=== PATIENT | female | born 1965 | race Caucasian/White ===

== ENCOUNTER → 2017-12-27 07:20 | Outpatient (CLI) | payer OTHER, SELFPAY ==
[2017-12-27 08:57] LABS: Absolute Lymphocyte Count 1.05 X10^3/ul (0.83-4.51); Absolute Neutrophil Count 2.3 X10^3/uL (2.0-7.7); Basophil# 0.02 X10^3/uL; Basophil% 0.5 % (0-1); Hematocrit 39.6 % (37-47); Hemoglobin 12.9 g/dl (12.0-15.0); Lymphocyte # 1.05 X10^3/ul (4.0); Lymphocyte % 26.1 % (19-41); Mean Corp Hgb Conc 32.6 g/gl (32-36); Mean Corpuscular Hgb 28.1 pg (27.0-32.0); Mean Corpuscular Volume 86.3 fL (81-99); Mean Platelet Vol. 10.8 fl (6.2-12.0); Monocyte# 0.45 X10^3/uL; Monocyte% 11.2 % (0-10); Neutrophil # 2.29 X10^3/uL (2.7-7.7); Platelet Count 228 K/mm3 (150-450); RBC Distribution Width CV 13.6 % (11.6-14.6); Red Blood Count 4.59 M/mm3 (4.2-5.4)
[2017-12-27 08:59] LABS: POSITIVE COUNT NO; POSITIVE DIFFERENTIAL NO; POSITIVE MORPHOLOGY NO
[2017-12-27 09:31] LABS: Anion Gap 7 (5-15); BUN 15 mg/dL (7-18); BUN/Creat Ratio 24.2 RATIO (10-20); Calcium,Total 9.4 mg/dL (8.5-10.1); Chloride 105 mmol/L (98-107); Cholesterol 223 mg/dL (200); Creatinine, Serum 0.62 mg/dL (0.55-1.02); EST Glomerular Filtration Rate 107 mL/min (>60); Est Glom Filt Rate - Afr Amer 129 mL/min (>60); Glucose 85 mg/dL (74-106); High Density Lipoprotein 85 mg/dL; Potassium 4.1 mmol/L (3.5-5.1); Sodium Level 140 mmol/L (136-145); Triglycerides 70 mg/dL; Very Low Density Lipoprotein 14 mg/dL (5-40)
[2017-12-27 09:34] LABS: Vitamin D,25 Hydroxy 25.1 ng/mL (19.95-100.01)
== END ==
PROVIDERS: Family Provider Internal Medicine; PCP Internal Medicine; Visit Provider Internal Medicine
DX: Z00.00 Encounter for general adult medical examination without abnormal findings (principal); R07.9 Chest pain, unspecified
CPT/HCPCS: 36415; 80048; 80061; 82306; 84484; 85025

== ENCOUNTER → 2019-08-27 08:31 | Outpatient (CLI) | payer OTHER, SELFPAY ==
[2019-08-27 08:18] VITALS: BMI 20.8
--- NOTE | 2019-08-27 08:34 | RAD_ITS ---
STUDY: X-RAY - LEFT KNEE REASON FOR EXAM: Medial knee pain status post injury 2 weeks ago, tingling extending down leg. TECHNIQUE: 4 view(s) of the knee. COMPARISON: None. FINDINGS: Normal visualized distal femur. Normal visualized proximal tibia and fibula. Normal proximal tibiofibular articulation. Normal medial femorotibial compartment. Normal lateral femorotibial compartment. Normal patellofemoral articulation. There is a small joint effusion. RAD/Knee 4 or More Views IMPRESSION: Small joint effusion. Electronically Signed: Martell Espinal MD at 12:44 EDT Tel , Service support ,
== END ==
PROVIDERS: Family Provider Internal Medicine; PCP Internal Medicine; Referring Provider Orthopaedic Surgery; Visit Provider Orthopaedic Surgery
DX: S89.92XA Unspecified injury of left lower leg, initial encounter (principal); X58.XXXA Exposure to other specified factors, initial encounter
CPT/HCPCS: 73564

== ENCOUNTER → 2019-08-27 10:36 | Outpatient (CLI) | payer OTHER, SELFPAY ==
[2019-08-27 08:18] VITALS: BMI 20.8
--- NOTE | 2019-08-27 10:40 | MRI_ITS ---
STUDY: MRI LEFT KNEE REASON FOR EXAM: Left medial knee pain, injury 2 weeks ago. TECHNIQUE: Standardized fat and water weighted pulse sequences were obtained in all 3 orthogonal planes. COMPARISON: Radiographs 08/27/2019. FINDINGS: There is a predominantly horizontal tear of the inferior articular surface of the posterior horn of the medial meniscus (proton density sagittal images 10-13). Normal hyaline cartilage of the medial femorotibial compartment. There is mild subchondral bone edema of the posterior aspect of the medial tibial plateau (T2 coronal images 11, 12), likely a stress phenomenon. There is a sprain of the superficial fibers of the medial collateral ligament (T2 coronal image 16). Normal distal semimembranosus, gracilis and semitendinosus tendons. Normal lateral meniscus. Normal hyaline cartilage of the lateral femorotibial compartment. Normal lateral femoral condyle and tibial plateau. Normal proximal tibiofibular articulation. Normal lateral collateral (fibular) ligament. Normal popliteus tendon. Normal biceps femoris tendon. Normal anterior cruciate ligament (ACL). Normal posterior cruciate ligament (PCL). Normal congruent patellofemoral articulation. Normal hyaline cartilage of the patellofemoral compartment. Normal medial and lateral patellar retinaculum. Normal quadriceps tendon. Normal patellar tendon. Normal Hoffa's fat pad. There is a small joint effusion. There is a short thin medial patellar plica. There is a small popliteal cyst with extravasation of fluid (T2 sagittal images 8, 9). The otherwise visualized osseous structures are unremarkable. MRI/Lower Ext Joint Only (Routine) IMPRESSION: Medial meniscal tear. Medial collateral ligament sprain. Mild subchondral bone edema of the medial tibial plateau, a stress phenomenon. Small joint effusion. Small popliteal cyst with extravasation of fluid. Electronically Signed: Martell Espinal MD at 12:40 EDT Tel , Service support ,
== END ==
PROVIDERS: Family Provider Internal Medicine; PCP Internal Medicine; Referring Provider Orthopaedic Surgery; Visit Provider Orthopaedic Surgery
DX: S83.242A Other tear of medial meniscus, current injury, left knee, initial encounter (principal); X58.XXXA Exposure to other specified factors, initial encounter
CPT/HCPCS: 73721

== ENCOUNTER → 2019-09-03 16:27 | Outpatient (CLI) | payer OTHER, SELFPAY ==
[2019-09-03 13:28] VITALS: BMI 19.3
[2019-09-03 16:32] LABS: Pathologist Comment May follow
[2019-09-03 20:40] LABS: AUTO B FLUID DILUENT BKGD CT WBC <0.1 RBC <0.01 (W<.1,R<.01); Source- Body Fluid SYNOVIAL
[2019-09-03 20:42] LABS: Appearance /Synovial Fluid Sl hazy (CLEAR); Color / Synovial Fluid Yellow (Pale Yellow); Source / Synovial Fluid L KNEE
[2019-09-03 20:43] LABS: Synovial Fld Polynuclear WBC # 0.011 10^3/uL
[2019-09-03 20:44] LABS: Synovial Fld Mononuclear WBC # 0.147 10^3/ul
[2019-09-03 21:08] LABS: RBC /Synovial Fluid 11 /mm3 (0)
[2019-09-03 21:26] LABS: Lymph 20 %; Monocyte /Synovial Fluid 80 %; Neutrophil 0 % (0-25)
[2019-09-03 21:27] LABS: Body Fluid QC Type(s) BF3Q,BF4Q
[2019-09-04 11:46] LABS: Pathologist Review Reviewed
[2019-09-07 10:29] LABS: GLUCOSE, SYNOVIAL FLUID 84 mg/dL (.); PROTEIN, SYNOVIAL FLUID 4.4 g/dL (.)
== END ==
PROVIDERS: Family Provider Internal Medicine; PCP Internal Medicine; Referring Provider Orthopaedic Surgery; Visit Provider Orthopaedic Surgery
DX: M25.462 Effusion, left knee (principal)
CPT/HCPCS: 82945; 84157; 87070; 87075; 87205; 89050; 89051; 89060

== ENCOUNTER → 2019-11-06 12:06 | Outpatient (CLI) | payer OTHER, SELFPAY ==
[2019-09-08 12:52] VITALS: BMI 19.3
--- NOTE | 2019-11-06 12:07 | BI_ITS ---
MAMMOGRAPHY - BILATERAL SCREENING REASON FOR EXAM: Female, 53 years old. Routine annual screening examination. PERTINENT HISTORY: Non-contributory. TECHNIQUE: Digital bilateral breast kyler (3D mammographic acquisition) in the CC and MLO projections. 2-D mediolateral oblique (MLO) and craniocaudad (CC) views of both breasts were obtained. CAD: Full Field Digital Mammography with Computer Added Detection was performed. COMPARISON: Comparison is made with prior outside examination dated May 02, 2015. FINDINGS: Breast Composition: The breasts are heterogeneously dense, which may obscure small masses. There are no dominant masses or suspicious calcifications. No other significant abnormalities are identified. There has been no significant change since the prior study. BI/SCREEN MAMM (CAD) W/KYLER BILAT IMPRESSION: Stable bilateral screening mammogram. Yearly follow-up mammogram recommended. (A) ASSESSMENT CATEGORY: BIRADS Category 1: Negative. A letter regarding these results will be sent to the patient by the facility within 30 days. Approximately 10% of breast cancers are not detected by mammography. A normal mammogram should not delay biopsy of a clinically suspicious abnormality. [id number] Electronically Signed: Noe Colin, at 9:06 EST , Service support ,
== END ==
PROVIDERS: Family Provider Internal Medicine; PCP Internal Medicine; Referring Provider Internal Medicine; Visit Provider Internal Medicine
DX: Z12.31 Encounter for screening mammogram for malignant neoplasm of breast (principal)
CPT/HCPCS: 77063; 77067

== ENCOUNTER 2019-12-02 07:46 | Day surgery (SDC) | payer OTHER, SELFPAY ==
[2019-11-24 15:17] VITALS: BMI 19.3
[2019-12-02] VITALS (12 sets, daily range): BP systolic 71–100; BP diastolic 46–66; PULSE 57–76; RESP 16; TEMP 36.2–37.1; O2SAT 92–100
--- NOTE | 2019-12-02 07:14 | HP.PCM_ITS ---
History and Physical I have re-examined the patient. There are no clinical changes since date of exam. Intake Vital Signs 11/24/19 BMI 19.3 Intake Visit Reasons: LEFT KNEE Chief Complaint: f/u visit Allergies No Known Allergies Allergy (Verified 09/08/19 12:39) Medications escitalopram oxalate 10 mg tablet mg PO 11/24/19 [History Confirmed 11/24/19] PFSH Social History (Updated 09/08/19 @ 14:00 by Wendy Oliva DO) Smoking Status: Light Smoker (<10/day) alcohol intake: current alcohol intake frequency: a few times a month Alcohol type: wine substance use type: does not use what type of physical activity do you participate in: walking frequency: 3-4 times per week HPI LEFT KNEE: Surgical H&P: Yes Details: Parts of this documentation were recorded by a scribe, this documentation accurately reflects the service provided and the decisions made by , Wendy Oliva DO 11/24/19 [id number]. JOSEFINA GARCIA is a 53 year old F here today for F/U on left knee pain. Patient had x-rays on 08/27/19 and she had an MRI on 08/27/19 and she had a meniscus tear. Patient opted for a steroid injection and this resolved her pain for about 2 months. She noted her pain returning about 11/03/19 and she thought it was ju st because of the holiday and she states that her pain has continued to worsen since then. Denies numbness, tingling or other associated symptoms. Patient is have anterior medial and lateral knee pain. Does have painful popping. She feels a lot instability of her knee with ambulation. Ortho Exam Left Knee Skin/Wound: Yes CDI, Yes swelling Contralateral Normal: Yes Homans Sign: No 1+: Effusion Knee ROM: Yes ROM-Extension -20 to 0, No ROM-Flexion 0-140 Examination: Yes med jt line tenderness, Yes Pain with flexion, Yes Eunice's T est No rales rhonchi wheezing, no abdominal pain, no audible bruits Assessment & Plan Problems 1. Acute medial meniscus tear of left knee, subsequent encounter S83.242D Plan - Wendy Oliva DO Reviewed the post op restrictions and limitations based on the meniscus vs meniscectomy. Reviewed the pre-operative plans with the patient. Risks and benefits of the procedure were fully explained, including but not limited to infection, neurovascular injury, continued pain, arthritis, stiffness, need for further pancho kendal, re-injury, DVT, PE, general risks of anesthesia, and loss of limb or life. The patient understands all the risks and does wish to proceed with written consent. Follow up post op or sooner if pain, swelling, numbness or associated symptoms, or concerns develop. All questions answered. Patient in agreement of plan. Coding Diagnoses Acute medial meniscus tear of left knee, subsequent encounter S83.242D ??Encounter type: subsequent encounter
[2019-12-02] MEDS: Lactated Ringers 1,000 ML 100 ML IV ×3 (08:20→11:14)
--- NOTE | 2019-12-02 09:05 | DCINST_ITS ---
Discharge Diet: No Restrictions - Do not get incision wet for 4 days, remove dressings in 4 days apply Band-Aids to incision sites, call with increased pain numbness tingling or further issues arise, ankle pumps, ice, elevate toes above nose, follow-up,ttwb left leg for 6 weeks Discharge Activity: May Not Drive May shower in (days): 1 Ice area for (Minutes): 20 - Every hour while awake. Weight Bearing Status: Weight bearing as tolerated Keep extremity elevated above heart level: Operative Extremity Call your doctor if your incision/area has: Continuous Slow Oozing, Sudden Increased Bleeding, Increased Pain/ Swelling, Increased Redness, Foul Smelling Discharge Call your doctor if you observe: Fever of 101 or Higher, Coldness, Increased Pain, Numbness or Tingling, Change in Color, Calf discomfort Allergies/Adverse Reactions: Allergies No Known Allergies Allergy (Verified 12/02/19 07:50) Medications to take at Discharge escitalopram oxalate 10 mg tablet 10 mg PO DAILY 11/24/19 Hydrocodone Bitart/Apap 5-325 [[place] 5MG-325MG] 1 - 2 tab PO Q6H PRN PRN 5 Days #40 tab 12/02/19 The following prescriptions were given: Hydrocodone Bitart/Apap 5-325 [[place] 5MG-325MG] 1 - 2 tab PO Q6H PRN PRN 5 Days #40 tab PRN Reason: Pain Transmission Status: Received by [facility] Primary Care Physician: Larry Hunt MD [Primary Care Provider] - Test Results: Test results from this visit will be discussed in further detail at your follow- up appointment, if applicable. Please Follow Up With: Wendy Oliva, DO - [phone]
--- NOTE | 2019-12-02 09:05 | OP.PCM_ITS ---
Report of Operation Date of Procedure: 12/02/19 Pre-Operative Diagnosis: left knee medial meniscus tear Post-Operative Diagnosis: [place] Surgery/Procedure Performed:: Left knee arthroscopy: Medial meniscectomy, medial meniscus repair, extensive synovectomy Type of Anesthesia:: General Anesthesiologist: Kiko Patel Specimen's removed: tt- Estimated Blood Loss (mL): min Fluids Replaced: 800cc lr Description of Procedure: Preop note Patient is a patient well-known to me in clinic. Patient sustained a twisting injury to her left knee continued pain and instability on the medial side. MRI confirms undersurface medial meniscus tear. Patient elected proceed with left knee arthroscopy. Indicated. Risk benefits and alternatives were discussed with patient. Risk include but not limited to blood loss, blood clot, infection, neurovascular, failure procedure, loss of life and loss of limb. Patient is aware would like proceed with left knee arthroscopy repair as indicated Operative note Patient seen and examined preop holding her. Left leg was marked. Patient brought to the operating placed supine on the operating table. Signed, anesthesia, antibiotics were administered. Left leg was prepped and draped usual sterile fashion. SCDs placed on her contralateral limb and all bony prominences well-padded. The left leg was marked out for 4 portal placement. The left leg was then elevated exsanguinated and tourniquet was raised her pressure of 250 torr. We get our diagnostic diagnostic arthroscopy after we create our anterolateral portal. Visualize the medial joint line with some difficulty showed extensive synovitis throughout. We create a anteromedial portal under direct with direct visualization. Resected the synovitis that was anteromedial anterolateral. Patellofemoral joint was intact. The medial meniscus anterior horn was intact however the posterior horn was intact the mid body to posterior horn there was an undersurface unstable frayed degenerative meniscus tear. This was resected with a shaver. There was little bit of instability at the leading edges of the tear on either side so we did placed to reverse curved FasT-Fix 360 devices for to prevent further propagation of the tear. ACL PCL were present within the notch. We then performed extensive synovitis lateral anterior lateral she still had difficulty getting to the lateral aspect of her joint line. We are able to visualize the meniscus which was intact and stable probing. The lateral femoral condyle the medial tibial plateau the medial femoral condyle and medial tibial plateau were all intact stable probing. She had limited fraying of the lateral tibial plateau and some fissuring with this was left alone. We then irrigated the knee with copious muscle sterile saline. Tourniquet deflated for total working time of 34 minutes. Sterile dressings were applied and a hinged knee brace to the left knee was applied. Patient taught procedure well no complication transferred recovery room stable condition Postoperative note Toe-touch weightbearing left leg Our pharmacy has prescriptions Call with increased pain numbness tingling further issues arise Discussed with we will give pictures at next postop visit This note was generated with [employer] dictation software. It may contain incorrect words, spelling, and punctuation that were not noted in checking the note before signing.
[2019-12-02] MEDS: Cefazolin 2 GM in 0.9% Normal Saline 100 ML IV (09:06)
[2019-12-02] MEDS: Epinephrine (1 mg/ml) 1 MG/ML VIAL (09:29)
[2019-12-02] MEDS: Mupirocin Ointment 22gm Tube 1 APPLIC (09:40)
[2019-12-02] MEDS: Bupiv/Epi 0.25% 30 ML Vial (10:06)
[2019-12-02] MEDS: HYDROcodone Bitartrate/Apap 5/325 Tablet PO (12:09)
== END 2019-12-02 12:47 | disposition home or self-care (01) ==
LOC: SDC 07:48 → AC 07:49
PROVIDERS: Family Provider Internal Medicine; PCP Internal Medicine; Referring Provider Orthopaedic Surgery; Visit Provider Orthopaedic Surgery
PROC: (CPT 29882; principal; 2019-12-02 09:10)
DX: S83.242D Other tear of medial meniscus, current injury, left knee, subsequent encounter (principal); Z87.891 Personal history of nicotine dependence
CPT/HCPCS: 29876; 29881; J7120; J2405

== ENCOUNTER 2020-02-05 08:00 | Outpatient (RCR) | payer OTHER, SELFPAY ==
--- NOTE | 2020-01-22 11:06 | HP.PTEVAL_ITS ---
Patient's Visit Information JOSEFINA GARCIA is a 54 year old F referred to Physical Therapy by Dr. Wendy Oliva DO with a diagnosis of L knee menisectomy. Date of Evaluation: 01/22/20 Physical Therapist: Adam Cesar, PT, ATC - Visit Plan Frequency: 1x/Week Duration: 4-6 Weeks Plan: L knee stretching ad strengthening, core strengthening, balance and proprio, bike, and HEP - Subjective Subjective: DOS: 12/02/2019. Pt reports she had a L meniscus repair. 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 Pt reports there was immediate pain and swelling. Pt reports she had a cortisone injection which helped for a few weeks, but the pain returned and he had to have surgery. Pt reports she was NWB'ing for 6 weeks and has been able to ambulate for 1 week now. Pt reports no pain with walking now. Pt reports she is really feeling better now. Pt reports she also has pain with descending stairs . Pt reports she continues to get mobility and flexibility back every day. 1/10 pain at rest, 3 /10 pain at worst - Pain L knee pain Pain Intensity (Out of 10): 1 Pain Intensity Range: 3 - Objective Neuro: B LE sensation is WNL to light touch. B achilles reflex= 2/3. ROM: R knee 0-4-145; L knee 0-10-110. MMT: L LE 4+/5 while R LE 5/5 throughout. Girth at joint line: B knees 34 cm - Goals Goal 1:: Decrease L knee pain x 50% to aid with IADL's Goal Time Frame: 4-6 Weeks Goal 2:: Increase L knee strength x 1 grade to aid with stair negotiation Goal Time Frame: 4-6 Weeks Goal 3:: Increase L knee ROM x 30 degrees to aid with sitting tolerance Goal Time Frame: 4-6 Weeks Goal 4:: I with HEP Goal Time Frame: 4-6 Weeks - Rehabilitation Potential Physical Therapy Diagnosis: L knee pain, weakness, and limited ROM secondary to L knee menisectoly Rehabilitation Potential: Good - Anticipated Interventions Patient/Client Instruction: Educate patient on: Condition, Plan of Care For the Purpose of:: To improve tolerance to ADL's Therapeutic Exercise to Include: Strength training, Endurance training, Flexibilty training, Gait and locomotor training, Active ROM, Dynamic Lumbar Stabilization For the Purpose of:: To decrease pain, To increase ROM, To improve muscle performance and motor function Cryotherapy (ice pack, ice massage): Yes For the Purpose of:: To decrease pain Thank you for the opportunity to evaluate your patient. For Medicare and Medicare HMO plans, please review the plan of care and approve it. It will need to be FAXED BACK to us at [phone] for Medicare purposes. For Medicare only, by signing this I certify the plan of care. Please let me know if there are questions or concerns regarding this plan of care. Physician Signature: Date:
--- NOTE | 2020-05-16 14:48 | HP.PT.NRP ---
JOSEFINA GARCIA was seen in my office for initial evaluation on 01/22/20. The following Plan of Care was established for this patient: Initial Frequency: 1x/Week Initial Duration: 4-6 Weeks Patient/Client Instruction: Educate patient on: Condition, Plan of Care For the Purpose of:: To improve tolerance to ADL's Therapeutic Exercise to Include: Strength training, Endurance training, Flexibilty training, Gait and locomotor training, Active ROM, Dynamic Lumbar Stabilization For the Purpose of:: To decrease pain, To increase ROM, To improve muscle performance and motor function Cryotherapy (ice pack, ice massage): Yes For the Purpose of:: To decrease pain This patient was last seen in our office . Pertinent comments regarding their Physical therapy will appear below: Pt was treated for 3 PT visits for L knee pain through the date of 02/05/2020. Pt is I with HEP and will cont with them at this time. Discontinue. At this point I will be discontinuing this patient from physical therapy. I would be happy to see this patient again in the future if found appropriate by the physician. Thank you! Adam Cesar, PT, ATC
== END 2020-02-05 19:00 | disposition home or self-care (01) ==
LOC: PT 08:00
PROVIDERS: PCP Internal Medicine; Referring Provider Orthopaedic Surgery; Visit Provider Orthopaedic Surgery
DX: Z98.890 Other specified postprocedural states (principal)
CPT/HCPCS: 97110; 97161

== ENCOUNTER 2020-07-27 16:39 | Outpatient (RCR) | payer OTHER, SELFPAY | END 2020-08-10 23:59 | LOC: EMPH 16:39 | PROVIDERS: PCP Internal Medicine; Visit Provider Family Medicine Geriatric Medicine | DX: Z11.59 Encounter for screening for other viral diseases (principal) | CPT/HCPCS: 87635; U0003 ==

== ENCOUNTER 2020-09-08 15:57 | Outpatient (RCR) | payer OTHER, SELFPAY | END 2020-09-10 23:59 | LOC: EMPH 15:57 | PROVIDERS: PCP Internal Medicine; Visit Provider Family Medicine Geriatric Medicine | DX: Z03.818 Encounter for observation for suspected exposure to other biological agents ruled out (principal) | CPT/HCPCS: 87426 ==

== ENCOUNTER 2020-10-05 07:58 | Outpatient (RCR) | payer OTHER, SELFPAY | END 2020-10-10 23:59 | LOC: EMPH 07:58 | PROVIDERS: PCP Internal Medicine; Visit Provider Family Medicine Geriatric Medicine | DX: Z03.818 Encounter for observation for suspected exposure to other biological agents ruled out (principal) | CPT/HCPCS: 87426 ==

== ENCOUNTER 2020-11-09 14:43 | Outpatient (RCR) | payer OTHER, SELFPAY | END 2020-11-10 23:59 | LOC: EMPH 14:43 | PROVIDERS: PCP Internal Medicine; Referring Provider Family Medicine Geriatric Medicine; Visit Provider Family Medicine Geriatric Medicine | DX: Z03.818 Encounter for observation for suspected exposure to other biological agents ruled out (principal) | CPT/HCPCS: 87426 ==

== ENCOUNTER 2020-12-09 08:13 | Outpatient (RCR) | payer OTHER, SELFPAY | END 2020-12-11 23:59 | LOC: EMPH 08:13 | PROVIDERS: PCP Internal Medicine; Referring Provider Family Medicine Geriatric Medicine; Visit Provider Family Medicine Geriatric Medicine | DX: Z03.818 Encounter for observation for suspected exposure to other biological agents ruled out (principal) | CPT/HCPCS: 87426 ==

== ENCOUNTER 2021-01-06 14:52 | Outpatient (RCR) | payer OTHER, SELFPAY | END 2021-01-08 23:59 | LOC: EMPH 14:52 | PROVIDERS: PCP Internal Medicine; Referring Provider Family Medicine Geriatric Medicine; Visit Provider Family Medicine Geriatric Medicine | DX: Z03.818 Encounter for observation for suspected exposure to other biological agents ruled out (principal) | CPT/HCPCS: 87426 ==

== ENCOUNTER 2021-02-02 08:08 | Outpatient (RCR) | payer OTHER, SELFPAY | END 2021-02-08 23:59 | LOC: EMPH 08:08 | PROVIDERS: PCP Internal Medicine; Referring Provider Family Medicine Geriatric Medicine; Visit Provider Family Medicine Geriatric Medicine | DX: Z03.818 Encounter for observation for suspected exposure to other biological agents ruled out (principal) | CPT/HCPCS: 87426 ==

== ENCOUNTER 2021-02-24 12:51 | Outpatient (RCR) | payer OTHER, SELFPAY | END 2021-03-10 23:59 | LOC: EMPH 12:51 | PROVIDERS: PCP Internal Medicine; Referring Provider Family Medicine Geriatric Medicine; Visit Provider Family Medicine Geriatric Medicine | DX: Z03.818 Encounter for observation for suspected exposure to other biological agents ruled out (principal) | CPT/HCPCS: 87426 ==

== ENCOUNTER 2021-05-09 13:25 | Outpatient (RCR) | payer OTHER, SELFPAY | END 2021-05-10 23:59 | LOC: EMPH 13:25 | PROVIDERS: PCP Internal Medicine; Referring Provider Family Medicine Geriatric Medicine; Visit Provider Family Medicine Geriatric Medicine | DX: Z03.818 Encounter for observation for suspected exposure to other biological agents ruled out (principal) | CPT/HCPCS: 87426 ==

== ENCOUNTER 2021-07-11 09:07 | Outpatient (RCR) | payer OTHER, SELFPAY | END 2021-07-11 23:59 | LOC: EMPH 09:07 | PROVIDERS: PCP Internal Medicine; Referring Provider Family Medicine Geriatric Medicine; Visit Provider Family Medicine Geriatric Medicine | DX: Z03.818 Encounter for observation for suspected exposure to other biological agents ruled out (principal) | CPT/HCPCS: 87426 ==

== ENCOUNTER 2021-07-24 09:34 | Outpatient (RCR) | payer OTHER, SELFPAY | END 2021-08-10 23:59 | LOC: EMPH 09:34 | PROVIDERS: PCP Internal Medicine; Referring Provider Family Medicine Geriatric Medicine; Visit Provider Family Medicine Geriatric Medicine | DX: Z03.818 Encounter for observation for suspected exposure to other biological agents ruled out (principal) | CPT/HCPCS: 87426 ==

== ENCOUNTER 2021-09-12 09:15 | Outpatient (RCR) | payer OTHER, SELFPAY | END 2021-10-10 23:59 | LOC: EMPH 09:15 | PROVIDERS: PCP Internal Medicine; Referring Provider Family Medicine Geriatric Medicine; Visit Provider Family Medicine Geriatric Medicine | DX: Z03.818 Encounter for observation for suspected exposure to other biological agents ruled out (principal) | CPT/HCPCS: 87426 ==

== ENCOUNTER 2021-11-08 11:00 | Outpatient (RCR) | payer OTHER, SELFPAY | END 2021-11-10 23:59 | LOC: EMPH 11:00 | PROVIDERS: PCP Internal Medicine; Referring Provider Family Medicine Geriatric Medicine; Visit Provider Family Medicine Geriatric Medicine | DX: Z03.818 Encounter for observation for suspected exposure to other biological agents ruled out (principal) | CPT/HCPCS: 87426; 87635; U0003 ==

== ENCOUNTER 2021-12-11 08:13 | Outpatient (RCR) | payer OTHER, SELFPAY | END 2021-12-11 23:59 | LOC: EMPH 08:13 | PROVIDERS: PCP Internal Medicine; Referring Provider Family Medicine Geriatric Medicine; Visit Provider Family Medicine Geriatric Medicine | DX: Z03.818 Encounter for observation for suspected exposure to other biological agents ruled out (principal) | CPT/HCPCS: 87426 ==

== ENCOUNTER 2021-12-25 15:28 | Outpatient (RCR) | payer OTHER, SELFPAY | END 2022-01-08 23:59 | LOC: EMPH 15:28 | PROVIDERS: PCP Internal Medicine; Referring Provider Family Medicine Geriatric Medicine; Visit Provider Family Medicine Geriatric Medicine | DX: Z03.818 Encounter for observation for suspected exposure to other biological agents ruled out (principal) | CPT/HCPCS: 87426 ==

== ENCOUNTER → 2022-11-30 | Outpatient (CLI) | payer OTHER, SELFPAY ==
[2022-11-30 12:29] LABS: Absolute Lymphocyte Count 1.31 X10^3/uL (0.83-4.51); Basophil# 0.04 X10^3/uL; Basophil% 0.7 % (0-1); Eosinophil# 0.15 X10^3/uL; Eosinophils% 2.5 % (0-5); Lymphocyte # 1.31 X10^3/ul (0.83-4.51); Lymphocyte % 21.7 % (19-41); Mean Corp Hgb Conc 31.7 g/dL (32-36); Mean Corpuscular Hgb 26.9 pg (27.0-32.0); Mean Corpuscular Volume 84.7 fL (81-99); Mean Platelet Vol. 10.7 fl (6.2-12.0); Monocyte# 0.53 X10^3/uL; Monocyte% 8.8 % (0-10); NRBC Flagged by Analyzer 0 % (0-5); Neutrophil # 3.98 X10^3/uL (2.7-7.7); Platelet Count 259 K/mm3 (150-450); RBC Distribution Width CV 13.7 % (11.6-14.6); RBC Distribution Width SD 42.9 fl (35.1-43.9); Red Blood Count 4.84 M/mm3 (4.2-5.4)
[2022-11-30 12:46] LABS: AST(SGOT) 16 U/L (15-37); Alanine Aminotransfer ALT/SGPT 23 U/L (13-56); Albumin, Serum 3.8 g/dL (3.2-5.0); Alkaline Phosphatase 76 U/L (45-117); Anion Gap 4 (5-15); BUN 20 mg/dL (7-18); BUN/Creat Ratio 33.2 RATIO (10-20); Calcium,Total 9.5 mg/dL (8.5-10.1); Chloride 105 mmol/L (98-107); Cholesterol 282 mg/dL (200); EST Glomerular Filtration Rate 108 mL/min (>60); Est Glom Filt Rate - Afr Amer 131 mL/min (>60); Globulin 3.7 g/dL (2.2-4.2); Glucose 95 mg/dL (74-106); High Density Lipoprotein 73 mg/dL; Potassium 4.2 mmol/L (3.5-5.1); Protein, Total 7.5 g/dL (6.4-8.2); Sodium Level 138 mmol/L (136-145); Triglycerides 137 mg/dL; Very Low Density Lipoprotein 27 mg/dL (5-40)
== END | disposition home or self-care (01) ==
LOC: BIMLAB 09:40
PROVIDERS: PCP Internal Medicine; Referring Provider Internal Medicine; Visit Provider Internal Medicine
DX: Z00.00 Encounter for general adult medical examination without abnormal findings (principal)
CPT/HCPCS: 36415; 80053; 80061; 85025

== ENCOUNTER → 2023-02-15 | Outpatient (CLI) | payer OTHER, SELFPAY ==
--- NOTE | 2023-02-15 13:19 | BI_ITS ---
MAMMOGRAPHY - BILATERAL SCREENING REASON FOR EXAM: Female, 57 years old. Routine annual screening examination. PERTINENT HISTORY: Non-contributory. TECHNIQUE: Digital bilateral breast kyler (3D mammographic acquisition) in the CC and MLO projections. 2-D mediolateral oblique (MLO) and craniocaudad (CC) views of both breasts were obtained. CAD: Full Field Digital Mammography with Computer Added Detection was performed. COMPARISON: Comparison is made with prior study of November 06, 2019. FINDINGS: Breast Composition: The breasts are heterogeneously dense, which may obscure small masses. There are no dominant masses or suspicious calcifications. No other significant abnormalities are identified. There has been no significant change since the prior study. BI/SCRN MAMM (CAD)W/KYLER BILAT IMPRESSION: Stable bilateral screening mammogram. Yearly follow-up mammogram recommended. (A) ASSESSMENT CATEGORY: BIRADS Category 1: Negative. A letter regarding these results will be sent to the patient by the facility within 30 days. Approximately 10% of breast cancers are not detected by mammography. A normal mammogram should not delay biopsy of a clinically suspicious abnormality. [id number] Electronically Signed: Noe Colin MD at 14:15 EDT ,
== END | disposition home or self-care (01) ==
PROVIDERS: PCP Internal Medicine; Referring Provider Internal Medicine; Visit Provider Internal Medicine
DX: Z12.31 Encounter for screening mammogram for malignant neoplasm of breast (principal)
CPT/HCPCS: 77063; 77067

== ENCOUNTER → 2023-11-15 | Outpatient (CLI) | payer OTHER, SELFPAY ==
--- NOTE | 2023-11-15 11:05 | ECHOD_ITS ---
Reason For Study: Palps Procedure This was a 2D Doppler, Color Flow transthoracic echocardiogram. Exam performed in department. Left Ventricle Normal LV size. Tiny membranous VSD likely. Left ventricular systolic function is normal. The estimated ejection fraction is 60 %. Normal diastology for age. No regional wall motion abnormalities noted. Right Ventricle Normal RV size. Normal systolic function. Atria Normal left atrium. Normal right atrium. Mitral Valve Normal mitral valve. Mild (1+) eccentric mitral valve insufficiency. Tricuspid Valve Normal tricuspid valve. Trivial tricuspid valve insufficiency. Pulmonary artery systolic pressure is 17 mmHg. Aortic Valve Normal aortic valve. Trisinus/trileaflet aortic valve. Pulmonic Valve Normal pulmonic valve. Great Vessels Normal aortic root. The pulmonary artery is normal size. Normal inferior vena cava. Pericardium/Pleural No pericardial effusion. MMode/2D Measurements & Calculations LVIDd: 4.4 cm IVSd: 0.76 cm Ao root diam: 2.8 cm LVIDs: 3.0 cm LVPWd: 0.78 cm RVDd: 2.8 cm FS: 32.8 % LAV(MOD-bp): 38.8 ml LVAd ap4: 27.6 cm2 LVAd ap2: 24.2 cm2 LAV(MOD-bp) Indexed: 22.7 ml/m2 LVLd ap4: 8.3 cm LVLd ap2: 7.5 cm LAV(MOD-sp2): 38.6 ml EDV(MOD-sp4): 77.4 ml EDV(MOD-sp2): 65.7 ml LAV(MOD-sp4): 34.9 ml EDV(sp4-el): 78.2 ml EDV(sp2-el): 66.4 ml LVAs ap4: 16.7 cm2 LVAs ap2: 15.2 cm2 LVLs ap4: 7.3 cm LVLs ap2: 6.8 cm ESV(MOD-sp4): 33.0 ml ESV(MOD-sp2): 28.3 ml ESV(sp4-el): 32.5 ml ESV(sp2-el): 28.9 ml EF(MOD-sp4): 57.3 % EF(MOD-sp2): 56.9 % EF(sp4-el): 58.5 % SV(MOD-sp4): 44.4 ml SV(MOD-sp2): 37.4 ml SV(sp4-el): 45.7 ml LA dimension(2D): 3.3 cm LA A4 area: 14.7 cm2 RA A4 area: 11.8 cm2 TAPSE: 1.8 cm Time Measurements MV dec time: 0.16 sec Doppler Measurements & Calculations MV E max trent: 71.6 cm/sec Lat Peak E' Trent: 10.7 cm/sec Med Peak E' Trent: 9.1 cm/sec MV A max trent: 71.6 cm/sec E/E' lat: 6.7 E/E' med: 7.9 MV E/A: 1.0 MV dec slope: 445.6 cm/sec2 Ao V2 max: 134.3 cm/sec LV V1 max: 116.7 cm/sec Ao max P.2 mmHg LV V1 max P.5 mmHg Ao V2 mean: 96.1 cm/sec LV V1 mean P.8 mmHg Ao mean P.2 mmHg LV V1 mean: 77.3 cm/sec Ao V2 VTI: 33.7 cm LV V1 VTI: 27.1 cm AV (velocity ratio): 0.80 PA V2 max: 89.9 cm/sec TR max trent: 187.9 cm/sec PA V2 mean: 65.3 cm/sec TR max P.1 mmHg ECHO/Echo Complete Interpretation Summary Normal LV size. Left ventricular systolic function is normal. The estimated ejection fraction is 60 %. Tiny membranous VSD likely Mild (1+) eccentric mitral valve insufficiency. Ordering Physician: Lyle Barriga Referring Physician: Larry Hunt Performed By: Celi Rojas RDCS
== END | disposition home or self-care (01) ==
LOC: CVS 10:33
PROVIDERS: PCP Internal Medicine; Referring Provider Internal Medicine Cardiovascular Disease; Visit Provider Internal Medicine Cardiovascular Disease
DX: I49.49 Other premature depolarization (principal)
CPT/HCPCS: 93306

== ENCOUNTER → 2023-11-15 | Outpatient (CLI) | payer OTHER, SELFPAY ==
[2023-11-15 11:02] LABS: Absolute Lymphocyte Count 1.71 X10^3/uL (0.83-4.51); Basophil# 0.04 X10^3/uL; Basophil% 0.6 % (0-1); Eosinophil# 0.25 X10^3/uL; Eosinophils% 3.9 % (0-5); Hematocrit 40.3 % (37-47); Hemoglobin 12.6 g/dL (12.0-15.0); Lymphocyte # 1.71 X10^3/ul (0.83-4.51); Lymphocyte % 26.4 % (19-41); Mean Corp Hgb Conc 31.3 g/dL (32-36); Mean Corpuscular Hgb 26.3 pg (27.0-32.0); Mean Corpuscular Volume 84.1 fL (81-99); Mean Platelet Vol. 10.2 fl (6.2-12.0); Monocyte# 0.49 X10^3/uL; Monocyte% 7.6 % (0-10); NRBC Flagged by Analyzer 0 % (0-5); Neutrophil # 3.98 X10^3/uL (2.7-7.7); Neutrophil % 61.3 % (47-70); Platelet Count 246 K/mm3 (150-450); RBC Distribution Width SD 43.4 fl (35.1-43.9); Red Blood Count 4.79 M/mm3 (4.2-5.4); White Blood Count 6.5 K/mm3 (4.4-11.0)
--- OUTSIDE RECORDS SUMMARY | 2023-11-15 11:38 | XMS RPT_ITS | CCD ---
Author Name Unknown Address [id number] [place] [address] Organization [facility] Care Team Providers Care Promotion Producer Name Role Phone KRZYSZTOF FONTAINE Attending Unavailable IMCA Referring Unavailable KRZYSZTOF FONTAINE Attending Unavailable IMCA Referring Unavailable KRZYSZTOF FONTAINE Attending Unavailable IMCA Referring Unavailable KRZYSZTOF FONTAINE Attending Unavailable KRZYSZTOF FONTAINE Referring Unavailable KRZYSZTOF FONTAINE Attending Unavailable KRZYSZTOF FONTAINE Referring Unavailable Unavailable Primary Care Provider Unavailabl e Unavailable Primary Care Provider Unavailabl e JORJE MARTIN, TESHA Bhagat Primary Care Unavailab KITTY Ziegler Attending Unavailabl e Medications Current Medications Medication Drug Class(es) Dates Sig (Normalized) Sig (Original) azithromycin 250 mg oral tablet (1 source) Macrolide Antimicrobial Start: 07-01-2022 End: 07-01-2022 take 2 tablets by mouth once, then take 1 tablet by mouth once daily azithromycin (ZITHROMAX Z-RICARDO) 250 mg tablet Take 2 tablets by mouth one time only for 1 dose. THEN 1 TAB DAILY FOR 4 DAYS. 6 tablet 0 07/01/2022 07/01/2022 Active Completed/Discontinued Medications Medication Drug Class(es) Dates Sig (Normalized) Sig (Original) dextromethorphan hydrobromide 15 mg / guaiFENesin 400 mg / pseudoephedrine hydrochloride 60 mg oral tablet (1 source) alpha-Adrenergic Agonist, Uncompetitive Z-qhuura-F-aspartat e Receptor Antagonist, Sigma-1 Agonist Start: 07-01-2022 take 1 tablet by mouth three times daily as needed pseudoephedrine -DM-guaiFENesin (CAPMIST DM) 60-15-400 mg tab Take 60 mg by mouth three times daily as needed. 21 tablet 0 07/01/2022 Active Problems Active Problems Problem Classification Problem Date Documented Da te Episodic/Chronic Mood disorders (2 sources) Major depressive disorder, recurrent severe without psychotic features Onset: 06-30-2018 Chronic Other upper respiratory infections (1 source) Acute maxillary sinusitis; Translations: [Acute maxillary sinusitis, unspecified] Episodic Unclassified (1 source) Cough, unspecified; Translations: [Cough, unspecified] Onset: 08-07-2023 Past or Other Problems Problem Classification Problem Date Documented Da te Episodic/Chronic Unclassified (1 source) Cough, unspecified; Translations: [Cough, unspecified] Onset: 08-07-2023 Results Test Name Value Interpretation Reference Range Facil ity Vital Signs Date Time Vital Sign Value Performing Clinician Faci lity 07-01-2022 12:43-0400 Body temperature 97.9 [degF] Sidney Pulliam MD Work Phone: [facility] 07-01-2022 12:43-0400 Body weight 61.87 kg Sidney Pulliam MD Work Phone: [facility] 07-01-2022 12:43-0400 Diastolic blood pressure 78 mm[Hg] Sidney Pulliam MD Work Phone: [facility] 07-01-2022 12:43-0400 Heart rate 67 /min Sidney Pulliam MD Work Phone: [facility] 07-01-2022 12:43-0400 Respiratory rate 15 /min Sidney Pulliam MD Work Phone: [facility] 07-01-2022 12:43-0400 SaO2% (BldA) [Mass fraction] 99 % Sidney Pulliam MD Work Phone: [facility] 07-01-2022 12:43-0400 Systolic blood pressure 115 mm[Hg] Sidney Pulliam MD Work Phone: [facility] Encounters Encounter Date Encounter Type Care Provider Facility Start: 08-07-2023 End: 08-07-2023 ambulatory TESHA RECINOS MD Facility:A Start: 07-01-2022 End: 07-01-2022 Patient encounter procedure Sidney Pulliam MD Work Phone: [facility] Procedures Date Procedure Procedure Detail Performing Clinician Start: 11-16-2019 Adult depression screening assessment Sidney Pulliam MD Work Phone: Start: 11-01-2000 CONVERTED SURGICAL PATHOLOGY Eh Tejada Work Phone: Plan of Treatment Date Care Activity Detail Author Start: 07-12-2022 Influenza vaccination INFLUENZA (#1) [facility] Start: 01-11-2022 COVID-19 VACCINE (4 - Booster for Moderna series) COVID-19 VACCINE (4 - Booster for Moderna series) [facility] Start: 11-16-2020 Adult depression scr eening assessment DEPRESSION SCREENING [facility] Start: 07-12-2020 Influenza vaccination INFLUENZA (#1) [facility] Start: 2013 SHINGRIX VACCINE (1 of 2) SHINGRIX V ACCINE (1 of 2) [facility] Start: 2013 Tuberculosis screening COLOREC KERMIT CANCER SCREENING,SEE MODIFIER [facility] Start: 2008 COLOGUARD (FIT-DNA) COLOGUARD (FIT-D NA) [facility] Start: 2008 Colonoscopy COLONOSCOPY [facility] Start: 2008 COLORECTAL CANCER SCREENING COLORECTAL CANCER SCREENING [facility] Start: [address] COLONOGRAPHY [facility] Start: 2008 DIABETES SCREEN DIABETES SCREEN [facility] Start: 2008 FECAL OCCULT BLOOD FECAL OCCULT BLOO D [facility] Start: 2008 LIPID SCREEN LIPID SCREEN [facility] Start: 2008 SIGMOIDOSCOPY SIGMOIDOSCOPY [facility] Start: 2003 Mammography MAMMOGRAM [facility] Start: 1993 HPV TESTING HPV TESTING [facility] Start: 1984 PAP TESTING PAP TESTING [facility] Start: 1982 Urine microalbumin profile DTAP,TDAP ,TD (1 - Tdap) [facility] Start: 1981 HEPATITIS C SCREENING HEPATITIS C SC REENING [facility] Start: 1981 HIV SCREENING HIV SCREENING [facility] Start: 1963 HEPATITIS B (1 of 3 - 3-dose series) HEPATITIS B (1 of 3 - 3-dose series) [facility] Payers Date Payer Category Payer Unknown [id number] 2015 Private Health Insurance [facility] CHOICE PLUS [id number] 2015-Present [phone] [address] [address] [place] [address] HMO [id number] 1963 Unknown [id number] 1963 Unknown [id number] 1963 Unknown [id number] 1963 Unknown [id number] 1963 Unknown [id number] 1963 Unknown [id number] Social History Date Type Detail Facility Tobacco smoking stat [facility] Unknown if ever smoked [facility] Start: 1965 Sex Assigned At Not on file C [facility] Start: 07-01-2022 Tobacco smoking stat [facility] Ex-smoker [facility] History of tobacco use Current smoker [facility] Start: 07-01-2022 Tobacco use and exposure Smoke less tobacco non-user [facility] Start: 07-01-2022 Alcohol intake Current drinke r of alcohol (finding) [facility] Start: 06-21-2022 End: 07-01-2022 Exposure to SARS-CoV-2 (event) Not sure [facility] Progress note 07-01-2022 Note Date & Type Note Facility 07-01-2022 Note HNO ID: [id number] Author: Sidney Pulliam MD Service: ? Author Type: Physician Type: Progress Notes Filed: 07/01/2022 12:53 PM Note Text: Josefina Garcia is a 56 year old female who presents with Sinus Problem (Pressure/ congestion for a week/ 4 negative covid tests) and Cough (productive) 56-year-old female presented here complaining sinus pressure, congestion and headache. Symptoms going on since she got back from the [employer] cruise. She did for COVID test was negative denies any other complaint. No fevers no chills. History reviewed. No pertinent past medical history. There is no problem list on file for this patient. Current Outpatient Medications Medication Sig Dispense Refill traZODone (DESYREL) 50 mg tablet take 1 tablet by mouth at bedtime if needed for sleep / insomnia escitalopram oxalate (LEXAPRO) 10 mg tablet Take 10 mg by mouth once daily. azithromycin (ZITHROMAX Z-RICARDO) 250 mg tablet Take 2 tablets by mouth one time only for 1 dose. THEN 1 TAB DAILY FOR 4 DAYS. 6 tablet 0 hbjkxlbwqqbkctj-ID-ydobWGPkzru (CAPMIST DM) 60-15-400 mg tab Take 60 mg by mouth three times daily as needed. 21 tablet 0 escitalopram oxalate (LEXAPRO) 10 mg tablet Take 1.5 tablets by mouth once daily. 45 tablet 2 No current facility-administered medications for this visit. Social History Tobacco Use Smoking status: Former Smokeless tobacco: Never Substance Use Topics Alcohol use: Yes Drug use: No Alcohol Use: Yes Tobacco Use: Quit FAMILY HISTORY Problem Relation Age of Onset Depression Mother Depression Sister Review of Systems HENT: Positive for congestion, ear pain and sore throat. All other systems reviewed and are negative. BP 115/78 Pulse 67 Temp (Src) 97.9 (Oral) Resp 15 Wt 136 lb 6.4 oz (61.9kg) SpO2 99% Physical Exam Vitals and nursing note reviewed. HENT: Head: Normocephalic. Ears: Comments: TM bilateral clear type effusion Nose: Nose normal. Mouth/Throat: Mouth: Mucous membranes are moist. Eyes: Extraocular Movements: Extraocular movements intact. Pupils: Pupils are equal, round, and reactive to light. Cardiovascular: Rate and Rhythm: Normal rate and regular rhythm. Pulses: Normal pulses. Heart sounds: Normal heart sounds. Pulmonary: Effort: Pulmonary effort is normal. Breath sounds: Normal breath sounds. Musculoskeletal: Cervical back: Normal range of motion. Neurological: Mental Status: She is alert. ASSESSMENT/PLAN: 1. Acute non-recurrent maxillary sinusitis - ICD9: 461.0, ICD10: J01.00 Z-Ricardo takes prescribed Capmist DM 1 tab p.o. 3 times daily have patient follow-up as needed. Sidney Pulliam [facility] History of Present illness Narrative 07-01-2022 Sidney Pulliam MD - 07/01/2022 12:52 PM EDT Note Date & Type Note Facility 07-01-2022 History of Presen t illness Narrative Josefina Garcia is a 56 year old female who presents with Sinus Problem (Pressure/ congestion for a week/ 4 negative covid tests) and Cough (productive) 56-year-old female presented here complaining sinus pressure, congestion and headache. Symptoms going on since she got back from the [employer]. She did for COVID test was negative denies any other complaint. No fevers no chills. History reviewed. No pertinent past medical history. There is no problem list on file for this patient. Current Outpatient Medications Medication Sig Dispense Refill traZODone (DESYREL) 50 mg tablet take 1 tablet by mouth at bedtime if needed for sleep / insomnia escitalopram oxalate (LEXAPRO) 10 mg tablet Take 10 mg by mouth once daily. azithromycin (ZITHROMAX Z-RICARDO) 250 mg tablet Take 2 tablets by mouth one time only for 1 dose. THEN 1 TAB DAILY FOR 4 DAYS. 6 tablet 0 zeroszixvmfgxmm-XH-nvydODRztil (CAPMIST DM) 60-15-400 mg tab Take 60 mg by mouth three times daily as needed. 21 tablet 0 escitalopram oxalate (LEXAPRO) 10 mg tablet Take 1.5 tablets by mouth once daily. 45 tablet 2 No current facility-administered medications for this visit. Social History Tobacco Use Smoking status: Former Smokeless tobacco: Never Substance Use Topics Alcohol use: Yes Drug use: No Alcohol Use: Yes Tobacco Use: Quit FAMILY HISTORY Problem Relation Age of Onset Depression Mother Depression Sister Review of Systems HENT: Positive for congestion, ear pain and sore throat. All other systems reviewed and are negative. BP 115/78 Pulse 67 Temp (Src) 97.9 (Oral) Resp 15 Wt 136 lb 6.4 oz (61.9kg) SpO2 99% Physical Exam Vitals and nursing note reviewed. HENT: Head: Normocephalic. Ears: Comments: TM bilateral clear type effusion Nose: Nose normal. Mouth/Throat: Mouth: Mucous membranes are moist. Eyes: Extraocular Movements: Extraocular movements intact. Pupils: Pupils are equal, round, and reactive to light. Cardiovascular: Rate and Rhythm: Normal rate and regular rhythm. Pulses: Normal pulses. Heart sounds: Normal heart sounds. Pulmonary: Effort: Pulmonary effort is normal. Breath sounds: Normal breath sounds. Musculoskeletal: Cervical back: Normal range of motion. Neurological: Mental Status: She is alert. ASSESSMENT/PLAN: 1. Acute non-recurrent maxillary sinusitis - ICD9: 461.0, ICD10: J01.00 Kimberly takes prescribed Capmist DM 1 tab p.o. 3 times daily have patient follow-up as needed. Sidney Pulliam documented in this encounter [facility] Evaluation note Note Date & Type Note Facility documented in this encounter [facility] Summary Purpose Family History No Family History Records FoundNo Family History Records FoundNo Family History Records FoundNo Family History Records Found Advance Directives No Advanced Directives Records FoundNo Advanced Directives Records FoundNo Advanced Directives Records FoundNo Advanced Directives Records Found Additional Source Comments INFORMATION SOURCE (unrecogn ized section and content) DATE CREATED AUTHOR AUTHOR'S ORGANIZ ATION 11/17/2019 [facility] DATE CREATED AUTHOR AUTHOR'S ORGANIZ ATION 07/05/2022 [facility] DATE CREATED AUTHOR AUTHOR'S ORGANIZ ATION 08/19/2023 [facility] ([place]) Source Comments (unrecognize d section and content) In the event this informatio n is protected by the Federal Confidentiality of Alcohol and Drug Abuse Patient Records regulations: The Federal rules restrict any use of the information to criminally investigate or prosecute any alcohol or drug abuse patient[facility] event this information is protected by the Federal Confidentiality of Alcohol and Drug Abuse Patient Records regulations: The Federal rules restrict any use of the information to criminally investigate or prosecute any alcohol or drug abuse patient.[facility] Reason for Visit (unrecogniz ed section and content) FOR RECORDS PERTAINING TO PATIENTS WHO ARE OR HAVE BEEN ENROLLED IN A CHEMICAL DEPENDENCY/SUBSTANCEABUSE PROGRAM, SOME INFORMATION MAY BE OMITTED. This clinical summary was aggregated from multiple sources. Caution should be exercised in using it in the provision of clinical care. This summary normalizes information from multiple sources, and as a consequence, information in this document may materially change the coding, format and clinical context of patient data. In addition, data may be omitted in some cases. CLINICAL DECISIONS SHOULD BE BASED ON THE PRIMARY CLINICAL RECORDS. [facility]. provides no warranty or guarantee of the accuracy or completeness of information in this document.
[2023-11-15 11:52] LABS: Anion Gap 5 (5-15); BUN 17 mg/dL (7-18); BUN/Creat Ratio 27.2 RATIO (10-20); Calcium,Total 8.9 mg/dL (8.5-10.1); Chloride 106 mmol/L (98-107); Creatinine, Serum 0.63 mg/dL (0.55-1.02); EST Glomerular Filtration Rate 103 mL/min (>60); Est Glom Filt Rate - Afr Amer 125 mL/min (>60); Glucose 96 mg/dL (74-106); Magnesium 2.2 mg/dL (1.6-2.6); Sodium Level 138 mmol/L (136-145); Thyroid Stim Hormone (TSH) 1.47 uIU/mL (0.358-3.74)
== END | disposition home or self-care (01) ==
LOC: LAB 10:32
PROVIDERS: PCP Internal Medicine; Referring Provider Internal Medicine Cardiovascular Disease; Visit Provider Internal Medicine Cardiovascular Disease
DX: I49.49 Other premature depolarization (principal)
CPT/HCPCS: 36415; 80048; 83735; 84443; 85025

== ENCOUNTER → 2023-11-27 | Outpatient (CLI) | payer OTHER, SELFPAY ==
--- OUTSIDE RECORDS SUMMARY | 2023-11-27 08:07 | XMS RPT_ITS | CCD ---
Author Name Unknown Address [address] [place] [address] Organization [facility] Care Team Providers Care Rehabilitation Counselor Name Role Phone KRZYSZTOF FONTAINE Attending Unavailable [...] oral tablet (1 source) alpha-Adrenergic Agonist, Uncompetitive C-bgvtoc-R-aspartat e Receptor Antagonist, Sigma-1 Agonist Start: 07-01-2022 [...] 97.9 [degF] Sidney Pulliam MD Work Phone: [facility] 07-01-2022 12:43-0400 Body weight 61.87 kg Sidney Pulliam MD Work Phone: [facility] 07-01-2022 12:43-0400 Diastolic blood pressure 78 mm[Hg] Sidney Pulliam MD Work Phone: [facility] 07-01-2022 12:43-0400 Heart rate 67 /min Sidney Pulliam MD Work Phone: [facility] 07-01-2022 12:43-0400 Respiratory rate 15 /min Sidney Pulliam MD Work Phone: [facility] 07-01-2022 12:43-0400 SaO2% (BldA) [Mass fraction] 99 % Sidney Pulliam MD Work Phone: [facility] 07-01-2022 12:43-0400 Systolic blood pressure 115 mm[Hg] Sidney Pulliam MD Work Phone: [facility] Encounters Encounter Date Encounter Type Care Provider Facility Start: 08-07-2023 End: 08-07-2023 ambulatory TESHA RECINOS MD Facility:A Start: 07-01-2022 End: 07-01-2022 Patient encounter procedure Sidney Pulliam MD Work Phone: [facility] Procedures Date Procedure Procedure Detail Performing Clinician Start: 11-16-2019 Adult depression screening assessment Sidney Pulliam MD Work Phone: Start: 11-01-2000 CONVERTED SURGICAL PATHOLOGY Eh Tejada Work Phone: Plan of Treatment Date Care Activity Detail Author Start: 07-12-2022 Influenza vaccination INFLUENZA (#1) [facility] Start: 01-11-2022 COVID-19 VACCINE (4 - Booster for Moderna series) COVID-19 VACCINE (4 - Booster for Moderna series) [facility] Start: 11-16-2020 Adult depression scr eening assessment DEPRESSION SCREENING [facility] Start: 07-12-2020 Influenza vaccination INFLUENZA (#1) [facility] Start: 2013 SHINGRIX VACCINE (1 of 2) SHINGRIX V ACCINE (1 of 2) [facility] Start: 2013 Tuberculosis screening COLOREC KERMIT CANCER SCREENING,SEE MODIFIER [facility] Start: 2008 COLOGUARD (FIT-DNA) COLOGUARD (FIT-D NA) [facility] Start: 2008 Colonoscopy COLONOSCOPY [facility] Start: 2008 COLORECTAL CANCER SCREENING COLORECTAL CANCER SCREENING [facility] Start: [address] COLONOGRAPHY [facility] Start: 2008 DIABETES SCREEN DIABETES SCREEN [facility] Start: 2008 FECAL OCCULT BLOOD FECAL OCCULT BLOO D [facility] Start: 2008 LIPID SCREEN LIPID SCREEN [facility] Start: 2008 SIGMOIDOSCOPY SIGMOIDOSCOPY [facility] Start: 2003 Mammography MAMMOGRAM [facility] Start: 1993 HPV TESTING HPV TESTING [facility] Start: 1984 PAP TESTING PAP TESTING [facility] Start: 1982 Urine microalbumin profile DTAP,TDAP ,TD (1 - Tdap) [facility] Start: 1981 HEPATITIS C SCREENING HEPATITIS C SC REENING [facility] Start: 1981 HIV SCREENING HIV SCREENING [facility] Start: 1963 HEPATITIS B (1 of 3 - 3-dose series) HEPATITIS B (1 of 3 - 3-dose series) [facility] Payers Date Payer Category Payer Unknown [id number] 2015 Private Health Insurance [facility] CHOICE PLUS [id number] 2015-Present [phone] [address] [address] [place] [address] HMO [id number] 1965 Unknown [id number] 1963 Unknown [id number] 1963 Unknown [id number] 1963 Unknown [id number] 1963 Unknown [id number] 1963 Unknown [id number] Social History Date Type Detail Facility Tobacco smoking stat [facility] Unknown if ever smoked [facility] Start: 1965 Sex Assigned At Not on file C [facility] Start: 07-01-[address] [facility] Ex-smoker [facility] History of tobacco use Current smoker [facility] Start: 07-01-2022 Tobacco use and exposure Smoke less tobacco non-user [facility] Start: 07-01-2022 Alcohol intake Current drinke r of alcohol (finding) [facility] Start: 06-21-2022 End: 07-01-2022 Exposure to SARS-CoV-2 (event) Not sure [facility] Progress note 07-01-2022 Note Date & Type Note Facility 07-01-2022 Note HNO ID: [id number] Author: Sidney Pulliam MD Service: ? Author Type: Physician Type: Progress Notes Filed: 07/01/2022 12:53 PM Note Text: Josefina Garcia is a 56 year old female who presents with Sinus Problem (Pressure/ congestion for a week/ 4 negative covid tests) and Cough (productive) 56-year-old female presented here complaining sinus pressure, congestion and headache. Symptoms going on since she got back from the [employer] cruise. She did for COVID test was [...] DAILY FOR 4 DAYS. 6 tablet 0 pmtgvbwofeencsq-RN-hokwUCYkspj (CAPMIST DM) 60-15-400 mg tab Take 60 [...] have patient follow-up as needed. Sidney Pulliam [facility] History of Present illness Narrative 07-01-2022 [...] on since she got back from the [employer]. She did for COVID test was negative [...] DAILY FOR 4 DAYS. 6 tablet 0 ezndjofnrpxqpiw-BD-pynvHNUrudu (CAPMIST DM) 60-15-400 mg tab Take 60 [...] needed. Sidney Pulliam documented in this encounter [facility] Evaluation note Note Date & Type Note Facility documented in this encounter [facility] Summary Purpose Family History No Family History Records FoundNo Family History Records FoundNo Family History Records FoundNo Family History Records Found Advance Directives No Advanced Directives Records FoundNo Advanced Directives Records FoundNo Advanced Directives Records FoundNo Advanced Directives Records Found Additional Source Comments INFORMATION SOURCE (unrecogn ized section and content) DATE CREATED AUTHOR AUTHOR'S ORGANIZ ATION 11/17/2019 [facility] DATE CREATED AUTHOR AUTHOR'S ORGANIZ ATION 07/05/2022 [facility] DATE CREATED AUTHOR AUTHOR'S ORGANIZ ATION 08/19/2023 [facility] ([place]) Source Comments (unrecognize d section and content) In the event this informatio n is protected by the Federal Confidentiality of Alcohol and Drug Abuse Patient Records regulations: The Federal rules restrict any use of the information to criminally investigate or prosecute any alcohol or drug abuse patient[facility] the event this information is protected by the Federal Confidentiality of Alcohol and Drug Abuse Patient Records regulations: The Federal rules restrict any use of the information to criminally investigate or prosecute any alcohol or drug abuse patient.[facility] Reason for Visit (unrecogniz ed section and [...] BE BASED ON THE PRIMARY CLINICAL RECORDS. [facility] [employer] [facility]. provides no warranty or guarantee of the accuracy or completeness of information in this document.
== END | disposition home or self-care (01) ==
LOC: PSN 07:52
PROVIDERS: PCP Internal Medicine; Referring Provider Internal Medicine Cardiovascular Disease; Visit Provider Internal Medicine Cardiovascular Disease
DX: I49.49 Other premature depolarization (principal)
CPT/HCPCS: 93225; 93226

== ENCOUNTER 2023-12-14 00:10 | Emergency (ER) | payer OTHER, SELFPAY ==
[2023-12-14 00:12] VITALS: BP 118/75; PULSE 58; RESP 16; TEMP 36.2; O2SAT 98; BMI 24.0
--- NOTE | 2023-12-14 00:34 | EDS_ITS ---
HPI History of Present Illness Chief Complaint: Chest Pain Informant: patient and spouse/S.O. Narrative Narrative: 57-year-old female presenting to the emergency room with a chief complaint of chest pain. Patient states that she was asleep in bed and around 2300 hrs. was awoken with a severe pain in the left chest which radiated into the left arm and neck. She notes some associated numbness into the left arm. No sweating shortness of breath or nausea. She made the decision to come to emergency but the symptoms seem to be worsening so EMS was called. They performed an EKG which did not show a STEMI . [facility] to be [facility] at [facility] Therefore she came by private vehicle. Patient is currently rating the pain a 1 out of 6. She has not had this before. Recently has been evaluated with Holter monitor, echocardiogram, cardiology consult for PACs. She was placed on metoprolol 25 mg daily. Patient states that she has had anxiety sensation before and this felt significantly different. She notes no change in exercise tolerance while performing her work duties. She does do an extensive amount of walking and has not noticed any exertional symptoms. She denies any DVT or PE risk factors. No significant familial history involving cardiac disease. In November 2022 the patient's outpatient total cholesterol and LDL was elevated. She believes that this was checked recently but I cannot see results. [facility] Medical History (Updated 12/14/23 @ 03:[address] Ezequiel Avila, ) Ectopic beat Encounter for screening for COVID-19 Hyperlipidemia Preventative health care Rosacea URI (upper respiratory infection) Home Medications escitalopram oxalate 10 mg tablet 10 mg PO DAILY 11/24/19 [History Last Taken Unknown] metronidazole 0.75 % topical cream 1 applic topical BID #45 grams 11/30/22 [Rx Last Taken Unknown] metoprolol succinate 25 mg tablet,extended release 24 hr (Toprol XL) 25 mg PO DAILY #90 tabs 11/28/23 [Rx Last Taken Unknown] trazodone 50 mg tablet mg 12/14/23 [History Last Taken Unknown] Allergy/AdvReac Type Severity Reaction Status Date / Time No Known Allergies Allergy Verified 12/14/23 00:13 Family History Father CVA (cerebral vascular accident) Hypertension Hyperlipemia Anxiety Grandfather Alcoholism CVA (cerebral vascular accident) Diabetes Grandfather Alcoholism Myocardial infarction, Onset Age: 75 Heart disease Mother Anxiety Sister Anxiety Grandmother Cancer unknown Surgical History History of tubal ligation Social History Smoking Status: Never smoker alcohol intake: current alcohol intake frequency: a few times a month Alcohol type: wine substance use type: does not use what type of physical activity do you participate in: walking frequency: 3-4 times per week ROS ROS ED Constitutional Constitutional ED: Denies chills, fever(s) or weight loss Eyes Eyes: Denies change in vision or diplopia ENT ENT ED: Denies ear pain, rhinorrhea or sore throat Cardiovascular Cardiovascular: Reports chest pain and other Details: PACs ; Denies orthopnea, palpitations or racing heartbeat Respiratory/Chest Respiratory/Chest: Denies cough, dyspnea or orthopnea Gastrointestinal Gastrointestinal: Denies abdominal pain, diarrhea, nausea or vomiting Genitourinary Genitourinary ED: Denies dysuria, hematuria or urinary frequency Musculoskeletal Musculoskeletal: Denies arthralgias or myalgias Integumentary Denies abscess or rash Neurologic Neurologic: Denies headache(s) or weakness Psychiatric Psychiatric: Denies anxiety, depression, suicidal ideation or suicidal thoughts Endocrine Endocrinology: Denies polydipsia, polyphagia or polyuria Allergic/Immunologic Allergic/Immunologic ED: Denies mouth swelling, tongue swelling or urticaria EXAM Physical Exam Const Vital Signs: 12/14/23 00:12 12/14/23 00:12 12/14/23 01:12 Temperature 97.1 F L Temperature Source Temporal Pulse Rate 58 L 60 Respiratory Rate 16 16 Respiratory Effort Normal Non-Labored Blood Pressure 118/75 101/67 Blood Pressure Mean 89 78 Pulse Ox 98 96 Oxygen Delivery Method Room Air Room Air 12/14/23 02:12 12/14/23 03:12 12/14/23 03:18 Temperature Temperature Source Pulse Rate 54 L 55 L 57 L Respiratory Rate 18 16 16 Respiratory Effort Blood Pressure 120/75 121/75 H 121/75 H Blood Pressure Mean 90 90 90 Pulse Ox 97 97 97 Oxygen Delivery Method Room Air Room Air Positive well nourished and well developed General Appearance ED: well developed HEENT Reports normocephalic, head/scalp atraumatic and moist mucous membranes Eyes PERRL and EOMs intact bilaterally Neck no lymphadenopathy, supple and no JVD Resp normal respiratory effort and clear to auscultation bilaterally Cardio regular rate, regular rhythm and no murmurs GI normal to inspection, nondistended, normoactive bowel sounds and non-tender Palpation: soft Back/Spine no CVA tenderness and normal ROM Extremity normal to inspection General Extremety ED: Negative for edema General Extremity: Negative for edema Neuro oriented x3 and CN's II-XII intact bilaterally Sensorium / Orientation: alert Motor Exam: strength 5/5 throughout Psych mental status grossly normal Mood & Affect: Negative for depressed or tearful Skin no rashes or lesions noted and no wounds Heart Score History: Moderately Suspicious ECG: Normal Age: >45 - <65 years Risk Factors: 1 or 2 Risk Factors Score: 3 MDM MDM MDM Narrative Medical decision making narrative: EKG was performed shows a sinus bradycardia without evidence of ACS. My independent interpretation of the chest x-ray is no acute process, normal mediastinal silhouette. 2 sets of cardiac enzymes are negative (4 and 2 hours later 5) creatinine 0.70 D-dimer is negative hemoglobin 12.6 platelet count 243. Patient is now asymptomatic. I did speak with on-call cardiology (Dr. Licea). He did speak with the patient directly here in the emergency department. The current recommendation is that she have an outpatient stress test and to return to emergency if return of symptoms. Patient is comfortable with this plan History & Record Review Discussion w/independent historian: Patient and Significant other Additional record(s) reviewed:: Prior outpatient record and Prior labs Lab Data Attestation: I reviewed the patient's lab results. Labs: Laboratory Results - last 24 hr 12/14/23 12/14/23 00:20 02:00 WBC 6.3 RBC 4.78 Hgb 12.6 Hct 40.0 MCV 83.7 MCH 26.4 L MCHC 31.5 L RDW Std Deviation 41.2 RDW Coeff of Kristine 13.4 Plt Count 243 MPV 10.3 Immature Gran % (Auto) 0.200 Neut % (Auto) 52.5 Lymph % (Auto) 32.1 [place] % (Auto) 10.3 H Eos % (Auto) 4.1 Baso % (Auto) 0.8 Absolute Neuts (auto) 3.3 Absolute Lymphs (auto) 2.03 Nucleated RBC % 0 D-Dimer Quant (PE/DVT) < 0.27 L Sodium 142 Potassium 3.9 Chloride 113 H Carbon Dioxide 27.0 Anion Gap 2 L BUN 25 H Creatinine 0.70 Estim Creat Clear Calc 81.01 Est GFR (MDRD) Af Amer 109 Est GFR (MDRD) Non-Af 90 BUN/Creatinine Ratio 35.6 H Glucose 101 Calcium 9.8 Troponin I High Sens 4 5 Radiography Diagnostic Testing: Clinical Impression(s) from Imaging Studies Chest X-Ray 12/14/23 00:40 IMPRESSION: No acute pulmonary finding. Electronically Signed: Ac Scott MD at 1:01 EST , EKG Initial EKG: Attestation: I personally reviewed and interpreted this EKG as follows: Comments: Sinus bradycardia with a ventricular rate of 58 bpm. PVC noted. Prior EKG tracings: available for review Prior: Unchanged Differential Diagnosis Chest pain/SOB: pulmonary embolism, ACS, pneumothorax and aortic dissection Management Discussion w/another healthcare provider: [employer] (Cardiology (Dr. Licea)) Discharge Plan Triage Chief Complaint: Chest Pain ED Provider: Ezequiel Avila Dx/Rx/DC Orders Clinical Impression: Chest pain Instructions: ED Chest Pain, Uncertain Cause Prescriptions: No Action escitalopram oxalate 10 mg tablet 10 mg PO DAILY metronidazole 0.75 % cream 1 applic topical BID Qty: 45 10RF trazodone 50 mg tablet Patient Comments: take 1 tablet by mouth at bedtime metoprolol succinate [Toprol XL] 25 mg tablet extended release 24 hr 25 mg PO DAILY Qty: 90 1RF Primary Care Provider: Larry Hunt Referrals: Larry Hunt MD [Primary Care Provider] - As soon as possible (Please call and inform them that it is strongly recommended that you get an outpatient stress test) Activity Restrictions/Additional Instructions: If any return of symptoms worsening or concerns please return to emergency. Disposition Disposition: Home, Self Care
--- NOTE | 2023-12-14 00:40 | RAD_ITS ---
INDICATION: chest pain EXAMINATION/TECHNIQUE: X-RAY - XR Chest 1 View COMPARISON: No relevant prior comparison study available FINDINGS: LINES/DEVICES: None. LUNGS: The lungs are well expanded. No consolidation, edema or effusion. No pneumothorax. MEDIASTINUM AND CARDIOVASCULAR STRUCTURES: Cardiac silhouette not enlarged. Central airways and mediastinal contour are unremarkable. BONES AND SOFT TISSUES: Unremarkable. RAD/Chest 1 View (Portable) IMPRESSION: No acute pulmonary finding. Electronically Signed: Ac Scott MD at 1:01 EST ,
--- OUTSIDE RECORDS SUMMARY | 2023-12-14 00:40 | XMS RPT_ITS | CCD ---
Author Name Unknown Address [address] [place] [address] Organization [facility] Care Team Providers Care Home Health Scheduler Name Role Phone KRZYSZTOF FONTAINE Attending Unavailable [...] oral tablet (1 source) alpha-Adrenergic Agonist, Uncompetitive I-pafvij-S-aspartat e Receptor Antagonist, Sigma-1 Agonist Start: 07-01-2022 [...] 97.9 [degF] Sidney Pulliam MD Work Phone: [facility] 07-01-2022 12:43-0400 Body weight 61.87 kg Sidney Pulliam MD Work Phone: [facility] 07-01-2022 12:43-0400 Diastolic blood pressure 78 mm[Hg] Sidney Pulliam MD Work Phone: [facility] 07-01-2022 12:43-0400 Heart rate 67 /min Sidney Pulliam MD Work Phone: [facility] 07-01-2022 12:43-0400 Respiratory rate 15 /min Sidney Pulliam MD Work Phone: [facility] 07-01-2022 12:43-0400 SaO2% (BldA) [Mass fraction] 99 % Sidney Pulliam MD Work Phone: [facility] 07-01-2022 12:43-0400 Systolic blood pressure 115 mm[Hg] Sidney Pulliam MD Work Phone: [facility] Encounters Encounter Date Encounter Type Care Provider Facility Start: 08-07-2023 End: 08-07-2023 ambulatory TESHA RECINOS MD Facility:A Start: 07-01-2022 End: 07-01-2022 Patient encounter procedure Sidney Pulliam MD Work Phone: [facility] Procedures Date Procedure Procedure Detail Performing Clinician Start: 11-16-2019 Adult depression screening assessment Sidney Pulliam MD Work Phone: Start: 11-01-2000 CONVERTED SURGICAL PATHOLOGY Eh Tejada Work Phone: Plan of Treatment Date Care Activity Detail Author Start: 07-12-2022 Influenza vaccination INFLUENZA (#1) [facility] Start: 01-11-2022 COVID-19 VACCINE (4 - Booster for Moderna series) COVID-19 VACCINE (4 - Booster for Moderna series) [facility] Start: 11-16-2020 Adult depression scr eening assessment DEPRESSION SCREENING [facility] Start: 07-12-2020 Influenza vaccination INFLUENZA (#1) [facility] Start: 2013 SHINGRIX VACCINE (1 of 2) SHINGRIX V ACCINE (1 of 2) [facility] Start: 2013 Tuberculosis screening COLOREC [place]ER[place] CANCER SCREENING,SEE MODIFIER [facility] Start: 2008 COLOGUARD (FIT-DNA) COLOGUARD (FIT-D NA) [facility] Start: 2008 Colonoscopy COLONOSCOPY [facility] Start: 2008 COLORECTAL CANCER SCREENING COLORECTAL CANCER SCREENING [facility] Start: [address] COLONOGRAPHY [facility] Start: 2008 DIABETES SCREEN DIABETES SCREEN [facility] Start: 2008 FECAL OCCULT BLOOD FECAL OCCULT BLOO D [facility] Start: 2008 LIPID SCREEN LIPID SCREEN [facility] Start: [address] [facility] Start: 2003 Mammography MAMMOGRAM [facility] Start: 1993 HPV TESTING HPV TESTING [facility] Start: 1984 PAP TESTING PAP TESTING [facility] Start: 1982 Urine microalbumin profile DTAP,TDAP ,TD (1 - Tdap) [facility] Start: 1981 HEPATITIS C SCREENING HEPATITIS C SC REENING [facility] Start: 1981 HIV SCREENING HIV SCREENING [facility] Start: 1963 HEPATITIS B (1 of 3 - 3-dose series) HEPATITIS B (1 of 3 - 3-dose series) [facility] Payers Date Payer Category Payer Unknown [id number] 2015 Private Health Insurance [facility] PL[facility] [id number] 2015-Present [phone] [address] [address] [place] [address] HMO [id number] 1963 Unknown [id number] 1963 Unknown [id number] 1963 Unknown [id number] 1963 Unknown [id number] 1963 Unknown [id number] 1963 Unknown [id number] Social History Date Type Detail Facility Tobacco smoking stat [facility] Unknown if ever smoked [facility] Start: 1965 Sex Assigned At Not on file [facility] Start: 07-01-2022 Tobacco smoking stat [facility] Ex-smoker [facility] History of tobacco use Current smoker [facility] Start: 07-01-2022 Tobacco use and exposure Smoke less tobacco non-user [facility] Start: 07-01-2022 Alcohol intake Current drinke r of alcohol (finding) [facility] Start: 06-21-2022 End: 07-01-2022 Exposure to SARS-CoV-2 (event) Not sure [facility] Progress note 07-01-2022 Note Date & Type Note Facility 07-01-2022 Note HNO ID: [id number] Author: Sidney Pulliam MD Service: ? Author Type: Physician Type: Progress Notes Filed: 07/01/2022 12:53 PM Note Text: Josefina Garcia is a 56 year old female who presents with Sinus Problem (Pressure/ congestion for a week/ 4 negative covid tests) and Cough (productive) 56-year-old female presented here complaining sinus pressure, congestion and headache. Symptoms going on since she got [place] [employer] [place]. She did for COVID test was [...] DAILY FOR 4 DAYS. 6 tablet 0 eycdpxhalxkhgqa-LS-xehqDYQmgvo (CAPMIST DM) 60-15-400 mg tab Take 60 [...] have patient follow-up as needed. Sidney Pulliam [facility] History of Present illness Narrative 07-01-2022 Sidney [...] on since she got back from [place] [employer]. She did for COVID test was negative [...] DAILY FOR 4 DAYS. 6 tablet 0 zweygramlbaxava-DK-obugZAZgwmi (CAPMIST DM) 60-15-400 mg tab Take 60 [...] needed. Sidney Pulliam documented in this encounter [facility] Evaluation note Note Date & Type Note Facility documented in this encounter [facility] Summary Purpose Family History No Family History Records FoundNo Family History Records FoundNo Family History Records FoundNo Family History Records Found Advance Directives No Advanced Directives Records FoundNo Advanced Directives Records FoundNo Advanced Directives Records FoundNo Advanced Directives Records Found Additional Source Comments INFORMATION SOURCE (unrecogn ized section and content) DATE CREATED AUTHOR AUTHOR'S ORGANIZ ATION 11/17/2019 [facility] DATE CREATED AUTHOR AUTHOR'S ORGANIZ ATION 07/05/2022 [facility] DATE CREATED AUTHOR AUTHOR'S ORGANIZ ATION 08/19/2023 [facility] ([place]) Source Comments (unrecognize d section and content) In the event this informatio n is protected by the Federal Confidentiality of Alcohol and Drug Abuse Patient Records regulations: The Federal rules restrict any use of the information to criminally investigate or prosecute any alcohol or drug abuse patient.[facility] the event this information is protected by the Federal Confidentiality of Alcohol and Drug Abuse Patient Records regulations: The Federal rules restrict any use of the information to criminally investigate or prosecute any alcohol or drug abuse patient.[facility] Reason for Visit (unrecogniz ed [...] BE BASED ON THE PRIMARY CLINICAL RECORDS. [facility]. provides no warranty or guarantee of the accuracy or completeness of information in this document.
[2023-12-14] MEDS: Aspirin 81 MG TAB.CHEW 324 MG PO (00:46)
[2023-12-14 00:48] LABS: Absolute Lymphocyte Count 2.03 X10^3/uL (0.83-4.51); Absolute Neutrophil Count 3.3 X10^3/uL (2.0-7.7); Basophil# 0.05 X10^3/uL; Basophil% 0.8 % (0-1); Eosinophil# 0.26 X10^3/uL; Eosinophils% 4.1 % (0-5); Hemoglobin 12.6 g/dL (12.0-15.0); Lymphocyte # 2.03 X10^3/ul (0.83-4.51); Lymphocyte % 32.1 % (19-41); Mean Corp Hgb Conc 31.5 g/dL (32-36); Mean Corpuscular Hgb 26.4 pg (27.0-32.0); Mean Corpuscular Volume 83.7 fL (81-99); Mean Platelet Vol. 10.3 fl (6.2-12.0); Monocyte# 0.65 X10^3/uL; Monocyte% 10.3 % (0-10); NRBC Flagged by Analyzer 0 % (0-5); Neutrophil # 3.32 X10^3/uL (2.7-7.7); Neutrophil % 52.5 % (47-70); Platelet Count 243 K/mm3 (150-450); RBC Distribution Width CV 13.4 % (11.6-14.6); RBC Distribution Width SD 41.2 fl (35.1-43.9); Red Blood Count 4.78 M/mm3 (4.2-5.4); White Blood Count 6.3 K/mm3 (4.4-11.0)
[2023-12-14 01:05] LABS: Anion Gap 2 (5-15); BUN 25 mg/dL (7-18); BUN/Creat Ratio 35.6 RATIO (10-20); Calcium,Total 9.8 mg/dL (8.5-10.1); Chloride 113 mmol/L (98-107); EST Glomerular Filtration Rate 90 mL/min (>60); Est Glom Filt Rate - Afr Amer 109 mL/min (>60); Estimated Creatinine Clearance 81.01 ml/min; Glucose 101 mg/dL (74-106); Potassium 3.9 mmol/L (3.5-5.1); Sodium Level 142 mmol/L (136-145); Troponin-I HS (w/2H Reflex) 4 pg/mL (3.0-54.0)
[2023-12-14 01:09] LABS: D-Dimer Quantitative (DVT/PE) < 0.27 FEU/ug/m (0.27-0.49)
[2023-12-14 01:12] VITALS: BP 101/67; PULSE 60; RESP 16; O2SAT 96
[2023-12-14 02:12] VITALS: BP 120/75; PULSE 54; RESP 18; O2SAT 97
[2023-12-14 02:44] LABS: Reflex Troponin-HS? (from REC) Y
[2023-12-14 03:10] LABS: Troponin-I HS 5 pg/mL (3.0-54.0)
[2023-12-14 03:12] VITALS: BP 121/75; PULSE 55; RESP 16; O2SAT 97
[2023-12-14 03:18] VITALS: BP 121/75; PULSE 57; RESP 16; O2SAT 97
== END 2023-12-14 03:29 | disposition home or self-care (01) ==
PROVIDERS: Emergency Provider Emergency Medicine; PCP Internal Medicine; Visit Provider Emergency Medicine
DX: R07.9 Chest pain, unspecified (principal); Z79.899 Other long term (current) drug therapy
CPT/HCPCS: 71045; 80048; 84484; 85025; 85379; 93005; 99284; A4216

== ENCOUNTER → 2024-03-03 | Outpatient (CLI) | payer OTHER, SELFPAY ==
--- NOTE | 2024-03-03 14:08 | BI_ITS ---
MAMMOGRAPHY - BILATERAL SCREENING REASON FOR EXAM: Female, 58 years old. Routine annual screening examination. PERTINENT HISTORY: Non-contributory. TECHNIQUE: Digital bilateral breast kyler (3D mammographic acquisition) in the CC and MLO projections. 2-D mediolateral oblique (MLO) and craniocaudad (CC) views of both breasts were obtained. CAD: Full Field Digital Mammography with Computer Added Detection was performed. COMPARISON: Comparison is made with prior study February 15, 2023 and November 06, 2019. FINDINGS: Breast Composition: The breasts are heterogeneously dense, which may obscure small masses. There are no dominant masses or suspicious calcifications. No other significant abnormalities are identified. There has been no significant change since the prior study. BI/SCRN MAMM (CAD)W/KYLER BILAT IMPRESSION: Stable bilateral screening mammogram. Yearly follow-up mammogram recommended. (A) ASSESSMENT CATEGORY: BIRADS Category 1: Negative. A letter regarding these results will be sent to the patient by the facility within 30 days. Approximately 10% of breast cancers are not detected by mammography. A normal mammogram should not delay biopsy of a clinically suspicious abnormality. [id number] Electronically Signed: Noe Colin MD at 15:02 EDT ,
== END | disposition home or self-care (01) ==
LOC: OPBI 14:08
PROVIDERS: PCP Internal Medicine; Referring Provider Internal Medicine; Visit Provider Internal Medicine
DX: Z12.31 Encounter for screening mammogram for malignant neoplasm of breast (principal)
CPT/HCPCS: 77063; 77067

== ENCOUNTER → 2024-04-03 | Outpatient (CLI) | payer OTHER, SELFPAY ==
[2024-04-03 09:28] LABS: AST(SGOT) 18 U/L (15-37); Alanine Aminotransfer ALT/SGPT 18 U/L (13-56); Albumin, Serum 3.6 g/dL (3.2-5.0); Alkaline Phosphatase 61 U/L (45-117); Anion Gap 5 (5-15); BUN 17 mg/dL (7-18); BUN/Creat Ratio 27.6 RATIO (10-20); Calcium,Total 9.3 mg/dL (8.5-10.1); Chloride 107 mmol/L (98-107); Creatinine, Serum 0.62 mg/dL (0.55-1.02); EST Glomerular Filtration Rate 105 mL/min (>60); Est Glom Filt Rate - Afr Amer 127 mL/min (>60); Globulin 3.6 g/dL (2.2-4.2); Glucose 97 mg/dL (74-106); Potassium 4.5 mmol/L (3.5-5.1); Protein, Total 7.2 g/dL (6.4-8.2); Sodium Level 138 mmol/L (136-145)
[2024-04-03 09:30] LABS: Cholesterol 302 mg/dL (200); High Density Lipoprotein 79 mg/dL; Triglycerides 100 mg/dL; Very Low Density Lipoprotein 20 mg/dL (5-40)
[2024-04-03 10:46] LABS: Hemoglobin A1c 5.6 % (3.8-5.6)
== END | disposition home or self-care (01) ==
LOC: LAB 08:05
PROVIDERS: Nurse Practitioner; PCP Internal Medicine; Referring Provider Internal Medicine; Visit Provider Internal Medicine
DX: E78.5 Hyperlipidemia, unspecified (principal); R07.9 Chest pain, unspecified
CPT/HCPCS: 36415; 80053; 80061; 83036

== ENCOUNTER → 2024-04-14 | Outpatient (CLI) | payer OTHER, SELFPAY ==
--- NOTE | 2024-04-14 13:02 | CT_ITS ---
STUDY: LOW DOSE CT LUNG CANCER SCREENING REASON FOR EXAM: Female, 58 years old. Lung cancer screening -- and gt;20 pk yr; former smoker; asymptomatic RADIATION DOSAGE (If Supplied By Facility): CTDIvol = ( 2.01 ) mGy, DLP = ( 62.93 ) mGycm TECHNIQUE: No contrast was administered. Low dose technique was utilized (average mAS-38 and kVp 120). 1.25 mm axial source images with a slice interval of 1.25-mm were reconstructed in lung windows. 2.5 mm axial source images with a slice interval of 2.5-mm were reconstructed in lung windows. 5.0 mm axial source images with a slice interval of 5.0-mm were reconstructed in soft tissue windows. COMPARISON: Comparison is made with prior chest radiograph dated December 14, 2023. NODULES: Nodule #: Emphysema: Mild degree of scarring at the right lung apex. Endobronchial lesion: None Aorta: Atherosclerotic plaque formation of the aortic arch. CORONARY ARTERIES: Coronary artery calcification is not seen. Heart: Unremarkable Pulmonary artery: Unremarkable Mediastinal nodes: Unremarkable Other chest and abdominal findings: CT/Low Dose CT Lung Screening IMPRESSION: Lung-RADS category 2 - Continue annual screening with LDCT in 12 months. IMPORTANT NOTES FOR USE: ACR Lung-RADS Version 1.1 Assessment Categories Release Date: 2018 Category: Coded 0-4 bases on nodule(s) with highest degree of suspicion. Negative screen is defined as categories 1 and 2; a positive screen is defined as categories 3 and 4. Category 3 and 4A nodules that are unchanged on interval CT should be coded as category 2, and individuals returned to screening in 12 months. Category 4X: Category 3 or 4 nodules with additional imaging findings that increase the suspicion of lung cancer, such as spiculation, GGN that doubles in size in 1 year, enlarged lymph notes, etc. Category Modifiers: S (significant finding unrelated to lung cancer) Electronically Signed: Noe Colin MD at 14:03 EDT ,
== END | disposition home or self-care (01) ==
PROVIDERS: PCP Internal Medicine; Referring Provider Nurse Practitioner Family; Visit Provider Nurse Practitioner Family
DX: Z12.2 Encounter for screening for malignant neoplasm of respiratory organs (principal); Z87.891 Personal history of nicotine dependence
CPT/HCPCS: 71271

== ENCOUNTER → 2024-04-30 | Outpatient (CLI) | payer OTHER, SELFPAY ==
--- NOTE | 2024-04-30 12:29 | BD_ITS ---
STUDY: DUAL ENERGY X-RAY ABSORPTIOMETRY / DXA REASON FOR EXAM: Female, 58 years old. Post menopausal TECHNIQUE: Bone Mineral Density (BMD) measurements of lumbar spine and bilateral hips were obtained. COMPARISON: None. FINDINGS: Lumbar Spine (L1-L4): g/cm2 (1.035) / T-score (-0.1) / Z-score (1.3) Findings are suggestive of normal bone density with a low fracture risk. Left Femur Total: g/cm2 (0.828) / T-score (-0.9) / Z-score (0.0) Left Femoral Neck: g/cm2 (0.753) / T-score (-0.9) / Z-score (0.4) Right Femur Total: g/cm2 (0.836) / T-score (-0.9) / Z-score (0.1) Right Femoral Neck: g/cm2 (0.768) / T-score (-0.7) / Z-score (0.6) BD/Dexa Bone Density Study IMPRESSION: The patient is considered normal as outlined below according to World Onofre Organization (WHO) criteria with a low fracture risk. Reference Information: The T-score is the number of standard deviations above or below the standard which is normal for young adults at their peak bone mineral density. The World Health Organization (WHO) interprets the T-scores as follows: Above -1 Normal bone density Between -1 and -2.5 Osteopenia Equal to / or below -2.5 Osteoporosis As a practical clinical guideline, osteopenia may be graded as follows: Mild -1 through -1.5 Moderate -1.6 through -2.0 Severe -2.1 through -2.4 The Z-score is the number of standard deviations above or below age-matched controls. A Z-score of less than -1.5 would be considered abnormal. References: 1. NIH Osteoporosis and Related Bone Diseases www osteo.org 2. International Society for Clinical Densitometry www iscd.org 3. National Osteoporosis Foundation www nof.org Electronically Signed: Noe Colin MD at 12:35 EDT ,
== END | disposition home or self-care (01) ==
PROVIDERS: PCP Internal Medicine; Referring Provider Internal Medicine; Visit Provider Internal Medicine
DX: Z78.0 Asymptomatic menopausal state (principal)
CPT/HCPCS: 77080

== ENCOUNTER → 2024-08-05 | Outpatient (CLI) | payer OTHER, SELFPAY ==
[2024-08-05 15:26] LABS: Mucous, Urine 0 SEEN /hpf (<or=2+); Red Blood Cells-Urine 0 SEEN /hpf (0-5)
[2024-08-05 17:00] LABS: Color, Urine Yellow (Yellow); Glucose, Dipstick Normal (Normal); Ketone-Dipstick Negative (Negative); Leukocyte Esterase-Dipstick 25 /ul (Negative); Nitrite-Dipstick Negative (Negative); Occult Blood-Urine Negative /ul (Negative); Protein-Dipstick Negative (Negative); Specific Gravity, Urine 1.025 (1.002-1.030); Urine Bilirubin Dipstick Negative (Negative); Urine Clarity Clear (Clear); Urine Urobilinogen Normal (Normal)
[2024-08-05 17:15] LABS: Bacteria 1+ /hpf (None Seen); Squamous Epithelial Cells - UA 5-10 SEEN /hpf (5-10); White Blood Cells 0-5 SEEN /hpf (0-5)
== END | disposition home or self-care (01) ==
LOC: LABSPEC 15:25
PROVIDERS: PCP Internal Medicine; Referring Provider Internal Medicine; Visit Provider Internal Medicine
DX: R10.2 Pelvic and perineal pain (principal)
CPT/HCPCS: 81001; 87086; 87088

== ENCOUNTER → 2024-09-02 | Outpatient (CLI) | payer OTHER, SELFPAY ==
--- NOTE | 2024-09-02 07:21 | CT_ITS ---
STUDY: CT CHEST WITHOUT CONTRAST REASON FOR EXAM: Female, 58 years old. Hyperlipidemia.limited chest over read only RADIATION DOSAGE (If Supplied By Facility): CTDIvol = ( 12.19 ) mGy, DLP = ( 195.04 ) mGycm TECHNIQUE: Transaxial imaging was performed without the administration of intravenous contrast material. Individualized dose optimization techniques were used for this CT. COMPARISON: Comparison is made with prior study dated April 14, 2024. FINDINGS: CHEST Mild scarring at the right lung apex. There is no demonstrated pleural abnormality. Normal heart and pericardium. No coronary artery calcification is seen. Normal mediastinum. Normal hilar regions. Normal unenhanced pulmonary arteries. Normal aorta arch and descending thoracic aorta. Normal osseous structures. There is no demonstrated abnormality of the visualized upper abdomen. CT/Limited Chest CT Cardiac Only IMPRESSION: Normal unenhanced CT chest. Electronically Signed: Noe Colin MD at 12:14 EDT ,
--- OUTSIDE RECORDS SUMMARY | 2024-09-02 07:23 | XMS RPT_ITS | CCD ---
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 THEN 1 TAB DAILY FOR 4 DAYS. 6 tablet 0 07/01/2022 07/01/2022 Active Comment on above: Take 2 tablets by mo [facility] one time only for 1 dose. THEN 1 TAB DAILY FOR 4 DAYS. Completed/Discontinued Medications Medication Drug Class(es) Dates Sig (Normalized) Sig (Original) dextromethorphan hydrobromide 15 mg / guaiFENesin 400 mg / pseudoephedrine hydrochloride 60 mg oral tablet (1 source) alpha-Adrenergic Agonist, Uncompetitive C-npwuze-H-aspartat e Receptor Antagonist, Sigma-1 Agonist Start: 07-01-2022 take 1 tablet by mouth three times daily as needed pseudoephedrine-D M-guaiFENesin (CAPMIST DM) 60-15-400 mg tab Take 60 mg by mouth three times daily as needed. 21 tablet 0 07/01/2022 Active Comment on above: Take 60 mg by mouth three times daily as needed. escitalopram 10 mg oral tablet (2 sources) Serotonin Reuptake Inhibitor Start: 12-30-2019 take 1.5 tablets by mouth once daily escitalopram oxalate (LEXAPRO) 10 mg tablet Take 1.5 tablets by mouth once daily. 45 tablet 2 12/30/2019 Active take 1 tablet by mouth once zoie y escitalopram oxalate (LEXAPRO) 10 mg tablet Take 10 mg by mouth once daily. 0 Active Comment on above: Take 1.5 tablets by mouth once daily. Take 10 mg by mouth once daily. traZODone hydrochloride 50 mg oral tablet (1 source) Serotonin Reuptake Inhibitor Start: 2 take 1 tablet by mouth at bedtime for sleep traZODone (DESYREL) 50 mg tablet take 1 tablet by mouth at bedtime if needed for sleep / insomnia 0 06/18/2022 Active Comment on above: take 1 tablet by mila th at bedtime if needed for sleep / insomnia Problems Active Problems Problem Classification Problem Date [...] Test Name Value Interpretation Reference Range Facil trishbeckie Munira 07-01-2022 CNOV Office Visit ([facility] ) JOSEFINA GARCIA ([id number]) 1965 F Date Time Provider Department 07/01/22 11:55 AM ROSA PULLIAM [facility] During your visit today, we recorded the following information about you: Temperature Pulse Respiration Blood pressure 97.9 degrees 67/minute 15/minute 115/78 Weight 61.9 kg Rosa Pulliam MD 07/01/2022 12:53 PM Signed Josefina Garcia is a 56 year old female who presents with Sinus Problem (Pressure/ congestion for a week/ 4 negative covid tests) and Cough (productive) 56-year-old female presented here complaining sinus pressure, congestion and headache. Symptoms going on since she got back from the [employer]. She did for COVID test was negative [...] mg by mouth once daily. azithromycin (ZITHROMAX Z-MATEO) 250 mg tablet Take 2 tablets by mouth one time only for 1 dose. THEN 1 TAB DAILY FOR 4 DAYS. 6 tablet 0 ivcuziiectkitoh-FO-tz aiFENesin (CAPMIST DM) 60-15-400 mg tab Take 60 [...] maxillary sinusitis - ICD9: 461.0, ICD10: J01.00 Z-Mateo takes prescribed Capmist DM 1 tab p.o. 3 times daily have patient follow-up as needed. Rosa Pulliam Referring Provider: SELF [200] Allergies As of Date: 07/01/2022 (No Known Allergies) Date Reviewed: 07/01/2022 Reviewed by: Rosa Pulliam MD - Fully Assessed Reason for Visit: Sinus Problem [99] Cmt: Pressure/ congestion for a week/ 4 negative covid tests Cough [28] Cmt: productive Primary Visit Diagnosis:Acute non-recurrent maxillary sinusitis [J01.00] Order(s):azithromycin (ZITHROMAX Z-MATEO) 250 mg tabletTake 2 tablets by mouth one time only for 1 dose. THEN 1 TAB DAILY FOR 4 DAYS.Disp: 6 tabletRfl: 0 omfimltqklreqfm-EO-zi aiFENesin (CAPMIST DM) 60-15-400 mg tabTake 60 mg by mouth three times daily as needed.Disp: 21 tabletRfl: 0 Prescriptions as of 07/01/2022 - traZODone (DESYREL) 50 mg tablet take 1 tablet by mouth at bedtime if needed for sleep / insomnia - escitalopram oxalate (LEXAPRO) 10 mg tablet Take 10 mg by mouth once daily. - azithromycin (ZITHROMAX Z-MATEO) 250 mg tablet Take 2 tablets by mouth one time only for 1 dose. THEN 1 TAB DAILY FOR 4 DAYS. - mlclpihsthhljpl-FR-qz aiFENesin (CAPMIST DM) 60-15-400 mg tab Take 60 mg by mouth three times daily as needed. - escitalopram oxalate (LEXAPRO) 10 mg tablet Take 1.5 tablets by mouth once daily. Problem List As Of Date: 07/01/2022 (None) Prescriptions ordered this encounter Disp Refills Start End AZITHROMYCIN 250 MG TABLET 6 ta* 0 07/01/2022 07/01/2022 Route: ORAL Sig: Take 2 tablets by mouth one time only for 1 dose. THEN 1 TAB DAILY FOR 4 DAYS. CAPMIST DM 60 MG-15 MG-400 MG TABLET 21 t* 0 07/01/2022 Route: ORAL Sig: Take 60 mg by mouth three times daily as needed. Encounter Status:Closed by ROSA PULLIAM on 07/01/22 [facility] PROGRESSon 11-16-2019 PROGRESS HNO ID: [id number] Author: Naif Osullivan Service: ? Author Type: Physician Type: Progress Notes Filed: 11/16/2019 9:14 PM Note Text: Josefina Garcia is a 53 year old female who presents for medication follow-up with self only . 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 Doing fair. Mood is better. In a lot of pain walking. The holidays went well. She had intermittent anxiety attacks. Celebrated the last Jeremiah in the house. Planning on selling it in the spring. All her children were at her home this holiday season. Getting along well with . Work is going well. Drinks to moderation. Compliant with medicine. No suicidal ideations. Current Outpatient Medications Medication Sig - LORazepam (ATIVAN) 0.5 mg tab Take 1 tablet by mouth every 8 hours for 10 days. - escitalopram oxalate (LEXAPRO) 10 mg tablet Take 1.5 tablets by mouth once daily. - traZODone (DESYREL) 50 mg tablet Take 1 tablet by mouth daily at bedtime. No current facility-administered medications for this visit. Discussed medication dosage, usage, goals of therapy, and side effects. ALLERGIES No Known Allergies History reviewed. No pertinent past medical history. No past surgical history on file. ROS: Review of Systems Constitutional: Positive for activity change and unexpected weight change. HENT: Negative. Eyes: Negative. Respiratory: Negative. Cardiovascular: Negative. Gastrointestinal: Negative. Musculoskeletal: Positive for joint swelling. TORN MINISCUS Skin: Negative. Allergic/Immunologic: Negative. Neurological: Negative. Hematological: Negative. Psychiatric/Behaviora l: The patient is nervous/anxious and is hyperactive. Social History Tobacco Use - Smoking status: Former Smoker - Smokeless tobacco: Never Used Substance Use Topics - Alcohol use: Yes - Drug use: No OBJECTIVE: BP 110/70 Pulse 70 Resp 16 Neurologic Exam MENTAL STATUS EXAMINATION: Appearance: Well dressed, well groomed Behavior: Behaves appropriately during the encounter Social relatedness: Anxious/Nervousness Speech/Language:The patient demonstrates appropriate tone, prosody, vicki, phonetics, and syntax Mood: Anxious Affect: Full affect Orientation: Person, Place, Time and Situation Associations: Intact and linear Thought Content: appropriate to situation Hallucinations: None Delusions: None Suicidal Ideation: No suicidal ideation, intent or plan. Homicidal Ideation: No homicidal ideation, intent or plan. Insight: Recognizes presence of illness Judgment: Judgment intact Depression Screening: PHQ-9 All Questions 11/16/2019 Little interest or pleasure in doing things 0 Feeling down, depressed, or hopeless 0 Trouble falling or staying asleep, or sleeping too much 0 Feeling tired or having little energy 0 Poor appetite or overeating 0 Feeling bad about yourself - or that you are a failure or have let yourself or your family down 0 Trouble concentrating on things, such as reading the newspaper or watching television 0 Moving or speaking so slowly that other people could have noticed. Or the opposite - being so fidgety or restless that you have been moving around a lot more than usual 0 Thoughts that you would be better off , or of hurting yourself in some way 0 PHQ-9 Score 0 MAKSMI-7 Screening: MAKSIM-7 All Questions 11/16/2019 Nervous, anxious or on edge 0 Stop or control worrying 0 Worrying too much 0 Trouble relaxing 0 Restless 0 Annoyed or irritable 0 Afraid something awful might happen 0 MAKSIM-7 Score 0 ASSESSMENT: Generalized anxiety disorder Severe episode of recurrent major depressive disorder, without psychotic features (hcc) (primary encounter diagnosis) Panic disorder without agoraphobia Personality disorder, unspecified (hcc) Condition is fair except above. Might need left knee surgery. PLAN: 1. Continue same treatment. 2. E prescription Ativan 0.5 mg daily when necessary #10 with no refills, escitalopram 10 mg 1-1/2 tab daily, trazodone 50 mg daily at bedtime. 3. Follow-up in 4 months. Call for refills. PDMP website checked and validated. All prescriptions have been APPROPRIATELY filled. No suspicious activity was identified. 11/16/2019 by Naif Osullivan MD Return in about 4 months (around 03/16/2020). Naif Osullivan MD [facility] PROGRESSon 07-20-2019 PROGRESS HNO ID: [id number] Author: Naif Osullivan Service: ? Author Type: Physician Type: Progress Notes Filed: 07/20/2019 6:03 PM Note Text: Josefina Garcia is a 53 year old female who presents for medication follow-up with self only . SUBJECTIVE: We decided to sell her house and downsize to a ranch. Doing fair. Mood is better. Anxiety is still high. Her youngest son celebrated 3 years of sobriety. Very proud of altered sons. Work is going well. Grandchildren are visiting. Drinks to moderation. Sleep is okay. Denies panic. Stable medically. Current Outpatient Medications: escitalopram oxalate (LEXAPRO) 10 mg tablet Take 1.5 tablets by mouth once daily. traZODone (DESYREL) 50 mg tablet Take 1 tablet by mouth daily at bedtime. No current facility-administered medications for this visit. Discussed medication dosage, usage, goals of therapy, and side effects. ALLERGIES No Known Allergies History reviewed. No pertinent past medical history. History reviewed. No pertinent surgical history. ROS: Review of Systems Constitutional: Positive for activity change and unexpected weight change. HENT: Negative. Respiratory: Negative. Cardiovascular: Negative. Gastrointestinal: Negative. Genitourinary: Negative. Musculoskeletal: Negative. Neurological: Negative. Hematological: Negative. Psychiatric/Behaviora l: Positive for behavioral problems. The patient is nervous/anxious and is hyperactive. Social History Socioeconomic History Marital status: Spouse name: Not on file Number of children: Not on file Years of education: Not on file Highest education level: Not on file Occupational History Not on file Social Needs Financial resource strain: Not on file Food insecurity: Worry: Not on file Inability: Not on file Transportation needs: Medical: Not on file Non-medical: Not on file Tobacco Use Smoking status: Former Smoker Smokeless tobacco: Never Used Substance and Sexual Activity Alcohol use: Yes Drug use: No Sexual activity: Yes Partners: Male Lifestyle Physical activity: Days per week: Not on file Minutes per session: Not on file Stress: Not on file Relationships Social connections: Talks on phone: Not on file Gets together: Not on file Attends yazidi service: Not on file Active member of club or organization: Not on file Attends meetings of clubs or organizations: Not on file Relationship status: Not on file Intimate partner violence: Fear of current or ex partner: Not on file Emotionally abused: Not on file Physically abused: Not on file Forced sexual activity: Not on file Other Topics Concerns: Not on file Social History Narrative Not on file OBJECTIVE: BP 110/70 Pulse 77 Resp 16 Neurologic Exam MENTAL STATUS EXAMINATION: Appearance: Well dressed, well groomed Behavior: Behaves appropriately during the encounter Social relatedness: Anxious/Nervousness Speech/Language:The patient demonstrates appropriate tone, prosody, vicki, phonetics, and syntax Mood: Anxious Affect: Full and appropriate to topic and congruent Orientation: Person, Place, Time and Situation Associations: Intact and linear Thought Content: appropriate to situation and anxious Hallucinations: None Delusions: None Suicidal Ideation: No suicidal ideation, intent or plan. Homicidal Ideation: No homicidal ideation, intent or plan. Insight: Appropriate Judgment: Appropriate Depression Screening: Patient Refused / Declined Initial Questionnaire: No Little interest or pleasure in doing things: 0 - Not at all Feeling down, depressed or hopeless: 0 - Not at all Score (Questions 1 AND 2): 0 Trouble falling or staying asleep, sleeping too much: 0 - Not at all Feeling tired or having little energy: 0 - Not at all Poor appetite or overeatin - Not at all Feeling bad about yourself or that you are a failure or have let yourself or family down: 0 - Not at all Trouble concentrating on things (reading newspaper/watching tv): 0 - Not at all Moving / speaking slowly that others noticed / being figety, restless that you have been moving around more than usual: 0 - Not at all Thoughts that you'd be better off or of hurting yourself: 0 - Not at all Score (Questions 3-9): 0 Total Score (All Questions): 0 MAKSIM-7 Screening: Feeling nervous, anxious or on edge: 0 - Not at all Not being able to stop or control worryin - Several days MAKSIM-2 Total Score: 1 Worrying too much about different things: 0 - Not at ll Trouble relaxin - Not at all Being so restless that it is hard to sit still: 0 - Not at all Becoming easily annoyed or irritable: 0 - Not at all Feeling afraid as if something awful might happen: 0 - Not at all MAKSIM -7 Total Score: 1 ASSESSMENT: Severe episode of recurrent major depressive disorder, without psychotic features (hcc) (primary encounter diagnosis) Generalized anxiety disorder Panic disorder without agoraphobia Personality disorder, unspecified (hcc) Condition is stabilizing. PLAN: 1. Continue same treatment. 2. Escitalopram 15 mg daily, trazodone 50 mg daily at bedtime. 3. Follow-up in 4 months. PDMP website checked and validated. All prescriptions have been APPROPRIATELY filled. No suspicious activity was identified. 07/20/2019 by Naif Osullivan MD Return in about 4 months (around 11/19/2019). Naif Osullivan MD [facility] PROGRESSon 02-19-2019 PROGRESS HNO ID: [id number] Author: Naif Osullivan Service: ? Author Type: Physician Type: Progress Notes Filed: 02/19/2019 4:57 PM Note Text: Josefina Garcia is a 53 year old female who presents for medication follow-up with self only . SUBJECTIVE: I suffered great deal of anxiety after Botox injection. Doing fair. Mood is less dysphoric. Less panicky. She called me last week after experiencing increase chest tightness and panic feeling. Discussed reasons for such reaction. Sleep is variable. and children are supportive. She is very proud of herself. Quite accomplished at work. Denies suicidal ideations. Cutting down her alcohol intake. No drugs. She increased Lexapro to 15 mg daily. She finished all the remaining Ativan that she had at home. Current Outpatient Medications: escitalopram oxalate (LEXAPRO) 10 mg tablet Take 1.5 tablets by mouth once daily. traZODone (DESYREL) 50 mg tablet Take 0.5 tablets by mouth daily at bedtime. LORazepam (ATIVAN) 0.5 mg tab Take 1 tablet by mouth every 8 hours for 10 days. escitalopram oxalate (LEXAPRO) 10 mg tablet Take 1 tablet by mouth once daily. escitalopram oxalate (LEXAPRO) 10 mg tablet Take 1.5 tablets by mouth once daily. No current facility-administered medications for this visit. Discussed medication dosage, usage, goals of therapy, and side effects. ALLERGIES No Known Allergies History reviewed. No pertinent past medical history. History reviewed. No pertinent surgical history. ROS: Review of Systems Constitutional: Positive for activity change and unexpected weight change. Psychiatric/Behaviora l: Positive for behavioral problems, dysphoric mood and sleep disturbance. The patient is nervous/anxious and is hyperactive. Social History Socioeconomic History Marital status: Spouse name: Not on file Number of children: Not on file Years of education: Not on file Highest education level: Not on file Social Needs Financial resource strain: Not on file Food insecurity - worry: Not on file Food insecurity - inability: Not on file Transportation needs - medical: Not on file Transportation needs - non-medical: Not on file Occupational History Not on file Tobacco Use Smoking status: Former Smoker Smokeless tobacco: Never Used Substance and Sexual Activity Alcohol use: Yes Drug use: No Sexual activity: Yes Partners: Male Other Topics Concerns: Not on file Social History Narrative Not on file OBJECTIVE: BP 110/61 Pulse 88 Resp 16 Neurologic Exam MENTAL STATUS EXAMINATION: Appearance: Casually dressed Behavior: Behaves appropriately during the encounter Social relatedness: Anxious/Nervousness and Fearful Speech/Language:The patient demonstrates appropriate tone, prosody, vicki, phonetics, and syntax Mood: Anxious Affect: Full affect Orientation: Person, Place, Time and Situation Associations: Intact and linear Thought Content: appropriate to situation and grandiosity preoccupied with somatic complaints. Hallucinations: None Delusions: None Suicidal Ideation: No suicidal ideation, intent or plan. Homicidal Ideation: No homicidal ideation, intent or plan. Insight: Recognizes responsibility of one's behavior Judgment: Limited Depression Screening: Patient Refused / Declined Initial Questionnaire: No Little interest or pleasure in doing things: 0 - Not at all Feeling down, depressed or hopeless: 0 - Not at all Score (Questions 1 AND 2): 0 Complete additional form: Patient given paper form to complete additional questions Patient Refused / Declined Additional Questionnaire: No Trouble falling or staying asleep, sleeping too much: 2 - More than half the days Feeling tired or having little energy: 0 - Not at all Poor appetite or overeatin - Several days Feeling bad about yourself or that you are a failure or have let yourself or family down: 0 - Not at all Trouble concentrating on things (reading newspaper/watching tv): 0 - Not at all Moving / speaking slowly that others noticed / being figety, restless that you have been moving around more than usual: 0 - Not at all Thoughts that you'd be better off or of hurting yourself: 0 - Not at all Score (Questions 3-9): 3 Total Score (All Questions): 3 MAKSIM-7 Screening: Feeling nervous, anxious or on edge: 3 - Nearly every day Not being able to stop or control worryin - Several days MAKSIM-2 Total Score: 4 Worrying too much about different things: 0 - Not at ll Trouble relaxin - Several days Being so restless that it is hard to sit still: 0 - Not at all Becoming easily annoyed or irritable: 0 - Not at all Feeling afraid as if something awful might happen: 1 - Several days MAKSIM -7 Total Score: 6 ASSESSMENT: Generalized anxiety disorder Severe episode of recurrent major depressive disorder, without psychotic features (hcc) (primary encounter diagnosis) Panic disorder without agoraphobia Personality disorder, unspecified (hcc) Addition is stabilizing except above. PLAN: 1. Continue same treatment. 2. E prescription for citalopram 10 mg 1-/2 tab daily #45 with 3 refills, trazodone 50 mg daily at bedtime 30 with 3 refills, Ativan 0.5 mg daily when necessary 10 with no refills. 3. Follow-up in 4 months. Call with progress. Decided against taking any more Botox injection PDMP website checked and validated. All prescriptions have been APPROPRIATELY filled. No suspicious activity was identified. 02/19/2019 by Naif Osullivan MD Return in about 4 months (around 06/21/2019). Naif Osullivan MD [facility] Otheron 11-05-2000 CONVERTED FINAL DIAGNOSIS SKIN OF LEFT NECK, EXCISION - INTRADERMAL NEVUS. [facility] CONVERTED ORDERING PROVIDER Ordering Provider: JARET TEJADA [facility] Thyroidon 11-05-2000 TSH Denia BAEZA M.D., PATHOLOGIST (Electronic signature on file) Final Signed Out: 11/05/2000 12:30 [facility] Vital Signs Date Time Vital Sign Value Performing Clinician Faci lity 07-01-2022 12:43-0400 Body temperature 97.9 [degF] Rosa Pulliam MD Work Phone: [facility] 07-01-2022 12:43-0400 Body weight 61.87 kg Rosa Pulliam MD Work Phone: [facility] 07-01-2022 12:43-0400 Diastolic blood pressure 78 mm[Hg] Rosa Pulliam MD Work Phone: [facility] 07-01-2022 12:43-0400 Heart rate 67 /min Rosa Pulliam MD Work Phone: [facility] 07-01-2022 12:43-0400 Respiratory rate 15 /min Rosa Pulliam MD Work Phone: [facility] 07-01-2022 12:43-0400 SaO2% (BldA) [Mass fraction] 99 % Rosa Pulliam MD Work Phone: [facility] 07-01-2022 12:43-0400 Systolic blood pressure 115 mm[Hg] Rosa Pulliam MD Work Phone: [facility] Encounters Encounter Date Encounter Type Care Provider Facility Start: 08-07-2023 End: 08-07-2023 ambulatory TESHA RECINOS MD Facility:A Start: 07-01-2022 End: 07-01-2022 Patient encounter procedure Rosa Pulliam MD Work Phone: [facility] Comment on above: Acute non-recurrent maxillary sinusitis (Primary Dx) Start: 06-18-2019 Patient encounter procedure NAIF OSULLIVAN Facility:[facility] Start: 02-19-2019 End: 02-19-2019 Patient encounter procedure NAIF OSULLIVAN Facility:[facility] Start: 10-20-2018 End: 10-20-2018 Patient encounter procedure NAIF OSULLIVAN Facility:[facility] Start: 06-30-2018 End: 06-30-2018 Patient encounter procedure NAIF OSULLIVAN Facility:[facility] Start: 06-26-2018 Patient encounter procedure NAIF OSULLIVAN Facility:[facility] Start: 11-01-2000 End: 11-01-2000 Patient encounter procedure Jaret Tejada Work Phone: [facility] Start: 11-01-2000 Results Only Jaret morgan Work Phone: [facility] Procedures Date Procedure Procedure Detail Performing Clinician Start: 11-16-2019 Adult depression screening assessment Rosa Pulliam MD Work Phone: Start: 11-01-2000 CONVERTED SURGICAL PATHOLOGY Jaret Jcnacho Work Phone: Plan of Treatment Date Care Activity Detail Author Start: 07-12-2022 Influenza vaccination INFLUENZA (#1) [facility] Start: 01-11-2022 COVID-19 VACCINE (4 - Booster for Moderna series) COVID-19 VACCINE (4 - Booster for Moderna series) [facility] Start: 11-16-2020 Adult depression scr eening assessment DEPRESSION SCREENING [facility] Start: 07-12-2020 Influenza vaccination INFLUENZA (#1) [facility] Start: 2013 SHINGRIX VACCINE (1 of 2) SHINGRIX V ACCINE (1 of 2) [facility] Start: 2013 Tuberculosis screening COLOREC KERMIT CANCER SCREENING,SEE MODIFIER [facility] Start: 2008 COLOGUARD (FIT-DNA) COLOGUARD (FIT-D NA) [facility] Start: 2008 Colonoscopy COLONOSCOPY [facility] Start: 2008 COLORECTAL CANCER SCREENING COLORECTAL CANCER SCREENING [facility] Start: [address] COLONOGRAPHY [facility] Start: 2008 DIABETES SCREEN DIABETES SCREEN [facility] Start: 2008 FECAL OCCULT BLOOD FECAL OCCULT BLOO D [facility] Start: 2008 LIPID SCREEN LIPID SCREEN [facility] Start: 2008 SIGMOIDOSCOPY SIGMOIDOSCOPY [facility] Start: 2003 Mammography MAMMOGRAM [facility] Start: 1993 HPV TESTING HPV TESTING [facility] Start: 1984 PAP TESTING PAP TESTING [facility] Start: 1982 Urine microalbumin profile DTAP,TDAP ,TD (1 - Tdap) [facility] Start: 1981 HEPATITIS C SCREENING HEPATITIS C SC REENING [facility] Start: 1981 HIV SCREENING HIV SCREENING [facility] Start: 1965 HEPATITIS B (1 of 3 - 3-dose series) HEPATITIS B (1 of 3 - 3-dose series) [facility] Payers Date Payer Category Payer Unknown [id number] 2015 Private Health Insurance [facility] [id number] 2015-Present [phone] [address] [address] [place] [address] HMO [id number] 1965 Unknown [id number] 1965 Unknown [id number] 1965 Unknown [id number] 1965 Unknown [id number] 1965 Unknown [id number] 1965 Unknown [id number] Social History Date Type Detail Facility Tobacco smoking stat [facility] Unknown if ever smoked [facility] Start: 1965 Sex Assigned At Not on file [facility] Start: 07-01-2022 Tobacco smoking stat [facility] Ex-smoker [facility] History of tobacco use Current smoker [facility] Start: 07-01-2022 Tobacco use and exposure Smoke less tobacco non-user [facility] Start: 07-01-2022 Alcohol intake Current drinke r of alcohol (finding) [facility] Start: 06-21-2022 End: 07-01-2022 Exposure to SARS-CoV-2 (event) Not sure [facility] Progress note 07-01-2022 Note Date & Type Note Facility 07-01-2022 Note HNO ID: [id number] Author: Rosa Pulliam MD Service: ? Author Type: Physician Type: Progress Notes Filed: 07/01/2022 12:53 PM Note Text: Josefina Garcia is a 56 year old female who presents with Sinus Problem (Pressure/ congestion for a week/ 4 negative covid tests) and Cough (productive) 56-year-old female presented here complaining sinus pressure, congestion and headache. Symptoms going on since she got back from the [employer]. She did for COVID test was [...] mg by mouth once daily. azithromycin (ZITHROMAX Z-MATEO) 250 mg tablet Take 2 tablets by mouth one time only for 1 dose. THEN 1 TAB DAILY FOR 4 DAYS. 6 tablet 0 omomeweduwbltxu-DV-aokgCOVbvdo (CAPMIST DM) 60-15-400 mg tab Take 60 [...] maxillary sinusitis - ICD9: 461.0, ICD10: J01.00 Z-Mateo takes prescribed Capmist DM 1 tab p.o. 3 times daily have patient follow-up as needed. Rosa Pulliam [facility] History of Present illness Narrative 07-01-2022 Rosa Pulliam MD - 07/01/2022 12:52 PM EDT [...] on since she got back from the [employer]. She did for COVID test was negative [...] mg by mouth once daily. azithromycin (ZITHROMAX Z-MATEO) 250 mg tablet Take 2 tablets by mouth one time only for 1 dose. THEN 1 TAB DAILY FOR 4 DAYS. 6 tablet 0 fxfdlmhwnoqxfye-IO-btzaPQXrwsh (CAPMIST DM) 60-15-400 mg tab Take 60 [...] maxillary sinusitis - ICD9: 461.0, ICD10: J01.00 IsabelMateo takes prescribed Capmist DM 1 tab p.o. 3 times daily have patient follow-up as needed. Rosa Pulliam documented in this encounter [facility] Evaluation note Note Date & Type Note Facility Evaluation note Diagnosis Acute non-recurrent maxillary sinusitis- Primary documented in this encounter [facility] Summary Purpose Family History No Family History Records FoundNo Family History Records FoundNo Family History Records FoundNo Family History Records Found Advance Directives No Advanced Directives Records FoundNo Advanced Directives Records FoundNo Advanced Directives Records FoundNo Advanced Directives Records Found Additional Source Comments INFORMATION SOURCE (unrecogn ized section and content) DATE CREATED AUTHOR 02/20/2019 [facility] DATE CREATED AUTHOR AUTHOR'S ORGANIZ ATION 11/17/2019 [facility] DATE CREATED AUTHOR AUTHOR'S ORGANIZ ATION 07/05/2022 [facility] DATE CREATED AUTHOR AUTHOR'S ORGANIZ ATION 08/19/2023 [facility] ([place]) Source Comments (unrecognize d section and content) In the event this informatio n is protected by the Federal Confidentiality of Alcohol and Drug Abuse Patient Records regulations: The Federal rules restrict any use of the information to criminally investigate or prosecute any alcohol or drug abuse patient.[facility] the event this information is protected by the Federal Confidentiality of Alcohol and Drug Abuse Patient Records regulations: The Federal rules restrict any use of the information to criminally investigate or prosecute any alcohol or drug abuse patient.[facility] Reason for Visit (unrecogniz ed section and content) Reason Comments Sinus Problem Pressure/ congestion for a week/ 4 negative covid tests Cough productive FOR RECORDS PERTAINING TO PATIENTS WHO ARE [...] BE BASED ON THE PRIMARY CLINICAL RECORDS. [facility] [facility]. provides no warranty or guarantee of the accuracy or completeness of information in this document.
--- NOTE | 2024-09-02 08:29 | CA.SCORE ---
Calcium Scoring Date of Study:: 09/02/24 Indications Indications: Hyperlipidemia Coronary Calcium Scoring: High-resolution Computed Tomographic imaging of the chest was performed on [09/02/2024], with particular attention paid to the coronary arteries. Images from the examination were analyzed for the presence and extent of coronary artery calcification , using coronary calcium quantification software. The patient tolerated the procedure well and there were no complications. The results of the coronary calcification analysis are provided below. Findings Coronary Artery Left Main (LM): 0 Left Anterior Descending (LAD): 0 Left Circumflex (LCX): 0 Right Coronary Artery (RCA): 0 Total Agatston Score: 0 Percentile Rankin Calcium Scoring Interpretation: Different methods to categorize the overall amount of coronary plaque. Overall amount CAC SIS Visual of coronary plaque P1 Mild -100 <2 1-2 vessels with mild amount of plaque P2 Moderate 101-300 3-4 1-2 vessels with moderate amount, 3 vessels with mild amount of plaque P3 Severe 301-999 5-7 3 vessels with moderate amount, 1 vessel with severe amount of plaque P4 Extensive >1000 >8 2-3 vessels with severe amount of plaque Conclusion: No atherosclerotic plaquing noted
== END | disposition home or self-care (01) ==
LOC: CT 07:20
PROVIDERS: PCP Internal Medicine; Referring Provider Internal Medicine Cardiovascular Disease; Visit Provider Internal Medicine Cardiovascular Disease
DX: Z00.00 Encounter for general adult medical examination without abnormal findings (principal); E78.5 Hyperlipidemia, unspecified
CPT/HCPCS: 75571; 76380

== ENCOUNTER 2025-01-14 06:45 | Day surgery (SDC) | payer OTHER, SELFPAY ==
[2025-01-14 11:31] VITALS: BP 130/76; PULSE 52; RESP 16; TEMP 36.4; O2SAT 99
[2025-01-14 11:45] VITALS: BP 113/53; BP 122/77; O2SAT 56; O2SAT 98; O2SAT 99
--- NOTE | 2025-01-14 11:45 | PCM.HP.BLA ---
History and Physical Date of Admission: 01/14/25 The pt is examined and there are no changes to the H&P of 01/06/25. Pt for shave excision neoplasm left nose, right yarsani, and back. Informed consent was obtained and pt marked in the pre-op area. Assessment & Plan Assessment/Plan (1) Neoplasm of uncertain behavior of skin of face: (2) Neoplasm of uncertain behavior of skin: PLAN: Plan For shave excision neoplasms of face and back
[2025-01-14] MEDS: Bacitracin 500 UNITS/GM PACKET (12:22)
[2025-01-14] MEDS: Silver Nitrate (BKC) 1 EACH (12:23)
[2025-01-14] MEDS: Lidocaine 1% /Epi 1:100 9 ML, Sodium Bicarbonate 1 MEQ OPERA.SITE (12:27)
--- NOTE | 2025-01-14 12:38 | DCINST_ITS ---
Discharge Instructions Dressing / Incision Additional Dressing/Incision Instructions:: May leave the Band-Aids off and there is no further drainage. Take the oral antibiotic (Keflex) 2 times a day until finished. May shower over the areas but do not scrub. May gently dab over the sites. Follow Up Care Please Follow Up With: Marybel Caldwell MD When: 2 weeks Test Results: Test results from this visit will be discussed in further detail at your follow- up appointment, if applicable. Discharge Plan Admission Attending Provider: Marybel Caldwell Primary Care Provider: Larry Hunt Instructions Print Language: Hong Konger Discharge Orders/Prescriptions Prescriptions: New cephalexin 500 mg capsule 500 mg PO BID 5 Days Qty: 10 0RF No Action escitalopram oxalate 10 mg tablet 10 mg PO DAILY Referrals / Follow Up: Larry Hunt MD [Primary Care Provider] - Disposition Disposition (needs filled in before D/C Order can be placed): Home, Self Care
--- NOTE | 2025-01-14 12:43 | PCM.OPRPT ---
Problems Associated Problem List Diagnoses (1) Neoplasm of uncertain behavior of skin: Operative Report (Standard) Operative Information Date of Procedure: 01/14/25 Pre-Operative Diagnosis: Neoplasm of uncertain behavior left nose, right tenriism, and back Post-Operative Diagnosis: Same Surgery/Procedure Performed: Shave excision lesion left nasal radix (0.5 cm); right tenriism (1.0 cm); and back (0.5 cm) concessions manager: No Type of Anesthesia: Local RN Documented Start/Stop Times: Operation Date: 01/14/25 12:55 Case Time Into Pre-Op 01/14/25 11:29 Out of Pre-Op 01/14/25 11:53 Into Room 01/14/25 12:00 Procedure Start 01/14/25 12:06 Procedure End 01/14/25 12:32 Out of Room 01/14/25 12:34 Procedure Start Time: 12:06 Procedure Stop Time: 12:32 Select all DRAINS/GRAFTS/IMPLANTS that apply: None Estimated Blood Loss: Minimal Specimen collected: Yes Description of specimen(s) removed: Neoplasm of nose, tenriism, and back Description of surgery: The patient presents with a growing or changing neoplasms of the left nose, tenriism, and back. She presents for shave excision of the lesions with submission for pathologic evaluation. The patient is marked in the preop holding area prior to surgery and informed consent is obtained. The patient is brought to the operating room and placed on the operating room table in the supine position. The face is prepped and draped in the usual sterile fashion. The patient did experience some eye irritation from the prep (which was done with baby shampoo) which resolved by the end of the case. We initially began with injecting all the sites with 1% Xylocaine with epinephrine buffered with sodium bicarb. Following this, each site is shaved at the base and the base is fulgarized with silver nitrate stick. Antibiotic ointment and Band-Aids are placed on all 3 sites. She tolerated the procedure well was taken to the recovery area in an awake and stable condition. Needle and sponge counts are correct. Surgical Findings: As above Complications Complications: No Admit VTE Documentation VTE Mechan Device Prophylaxis: None Reason prophylaxis not ordered: Treatment Not Indicated
[2025-01-14 12:46] VITALS: BP 115/87; PULSE 64; RESP 16; TEMP 35.9; O2SAT 97
--- NOTE | 2025-01-14 12:55 | LES_PTH ---
PATIENT: JOSEFINA GARCIA LOC: [facility] U#:[id number] AGE/SX: 59/F ROOM: RE01/14/[address]: Dr. Marybel Caldwell MD : 1965 BED: DIS: 01/14/2025 SPEC #: [id number] RECD: 01/15/25 09:11 STATUS: DEVYN MARTIN #: [id number] LALA: 01/14/25 12:[address]: Marybel Caldwell DEPT: SURGICAL PATHOLOGY RECD BY: Jhonny Vigil ENTERED: 01/15/25 09:13 SP TYPE: Lesion OTHR DR: Dr. Larry Hunt MD Tissues: A - Skin of nose, NOS B - Skin of face, NOS C - Skin of back, NOS Procedures: Surgery Specimen Level IV HEADER OPERATION: Shave lesion left nose and right taoism, back PRE-OP DIAGNOSIS: Neoplasms of face and back TISSUE SUBMITTED: A- Shave lesion, left nasal radix, B- Shave lesion, right taoism, C- Shave lesion back MICROSCOPIC DIAGNOSIS A. Skin, left nasal radix, shave biopsy x2: * Proliferative actinic keratosis x1. * Seborrheic keratosis x1. B. Skin, right taoism, shave biopsy: * Seborrheic keratosis (four fragments). C. Skin, back, shave biopsy: * Seborrheic keratosis. MICROSCOPIC DESCRIPTION Slides are reviewed. GROSS DESCRIPTION Specimen A-received in formalin labeled, GarciaJosefina, and designated shave lesion left nasal radix are two shave biopsies of davis-escamilla, granular, unoriented, skin that measure 0.5 x 0.2 x 0.2 cm, and 0.4 x 0.2 x 0.2 cm. The margin of the larger fragment is inked black and the margin of the smaller is inked blue. Each fragment is submitted intact in one cassette.Specimen B-received in formalin labeled, GarciaMaryy, and designated shave lesion right taoism, are four shave biopsies of davis, granular, scaly, skin ranging from 0.6 x 0.2 x 0.1 cm to 1.4 x 0.5 x 0.1 cm. The fragments are entirely submitted as follows:Cassette Summary:1-largest fragment inked black bisected, smallest fragment inked blue intact2-two remaining fragments each bisected one inked black one inked blueSpecimen C-received in formalin labeled, Garcia, Josefina, and designated back, is a shave biopsy of davis, smooth, scaly, skin measuring 0.5 x 0.4 x 0.2 cm. Specimen is inked black, bisected, and totally submitted in one cassette.PhilomenaK. 01/15/2025 CPT:[id number]
== END 2025-01-14 12:55 | disposition home or self-care (01) ==
LOC: SDC 06:46 → AC 11:11
PROVIDERS: PCP Internal Medicine; Referring Provider Plastic Surgery; Visit Provider Plastic Surgery
PROC: (CPT 11310; principal; 2025-01-14 12:45)
DX: L82.1 Other seborrheic keratosis (principal); L57.0 Actinic keratosis; E78.00 Pure hypercholesterolemia, unspecified; Z79.899 Other long term (current) drug therapy; Z87.891 Personal history of nicotine dependence
CPT/HCPCS: 11310; 11311; 11300; 88305

== ENCOUNTER → 2025-06-01 | Outpatient (CLI) | payer OTHER, SELFPAY ==
--- NOTE | 2025-06-01 14:36 | CT_ITS ---
EXAM: CT Chest, Lung Cancer Screening Without Intravenous Contrast CLINICAL INDICATION: LUNG CANCER SCREENING TECHNIQUE: Axial computed tomography images of the chest without intravenous contrast using low dose (LDCT) lung cancer screening protocol. This CT exam was performed using one or more of the following dose reduction techniques: automated exposure control, adjustment of the mA and/or kV according to patient size, and/or use of iterative reconstruction technique. COMPARISON: CT Lung Cancer Screening dated 04/14/2024 FINDINGS: LUNGS AND PLEURAL SPACES: Lung emphysema with bilateral apical scarring, some of which has a nodular appearance measuring up to 2 mm. 4 mm subpleural nodule of the lateral right lower lobe. No consolidation. No significant effusion. No pneumothorax. HEART: Unremarkable. No cardiomegaly. No significant pericardial effusion. No significant coronary artery calcifications. BONES/JOINTS: Unremarkable. No acute fracture. SOFT TISSUES: Unremarkable. VASCULATURE: Unremarkable. No thoracic aortic aneurysm. LYMPH NODES: Unremarkable. No enlarged lymph nodes. CT/Low Dose CT Lung Screening IMPRESSION: LUNG-RADS 2: Benign. Continue low-dose CT screening of the chest in 12 months is recommended. Reading [facility]
== END | disposition home or self-care (01) ==
LOC: CT 14:35
PROVIDERS: PCP Internal Medicine; Referring Provider Nurse Practitioner Family; Visit Provider Nurse Practitioner Family
DX: Z12.2 Encounter for screening for malignant neoplasm of respiratory organs (principal); Z87.891 Personal history of nicotine dependence
CPT/HCPCS: 71271